=== PATIENT | female | born 1955 | race Caucasian/White ===

== ENCOUNTER → 2018-05-15 11:37 | Outpatient (REF) | payer MEDICARE, OTHER, SELFPAY ==
[2018-05-15 12:48] LABS: Bilirubin Negative (Negative); Blood Negative (Negative); Clarity Sl Cloudy; Glucose Negative (Negative); Ketones Negative (Negative); Leukocyte Esterase Negative (Negative); Nitrite Negative (Negative); Specific Gravity 1.015 (1.005-1.025); Urobilinogen 0.2 EU/dL (Up TO 0.2); pH 7.5 (5-8)
== END ==
LOC: LBN 11:37
PROVIDERS: PCP Family Medicine; Visit Provider Family Medicine
DX: R30.0 Dysuria (principal)
CPT/HCPCS: 81003

== ENCOUNTER 2018-07-18 09:48 | Outpatient (CLI) | payer MEDICARE, OTHER, SELFPAY ==
[2018-07-18 13:04] LABS: ALT 21 U/L (12-78); AST 17 U/L (15-37); Albumin 3.8 g/dL (3.4-5.0); Alkaline Phosphatase 120 U/L (46-116); Anion Gap 9.1 mmol/L (3-11); BUN 21 mg/dL (7-18); Bilirubin, Total 0.4 mg/dL (0.2-1.0); CO2 28.9 mmol/L (21.0-32.0); CREATININE 0.96 mg/dL (0.55-1.02); Calcium 9.3 mg/dL (8.5-10.1); Chloride 102 mmol/L (98-107); Cholesterol 200 mg/dL (50-200); Estimated GFR 58.33 (mL/min/1.73m2); Glucose 96 mg/dL (70-100); HDL Cholesterol 54 mg/dL (40-60); LDL CHOLESTEROL 132 mg/dL (<100); Potassium 4.6 mmol/L (3.5-5.1); Sodium 140 mmol/L (136-145); TSH (W/Ref FT4) 2.01 uIU/mL (0.358-3.74); Total Protein 7.3 g/dL (6.4-8.2); Triglyceride 62 mg/dL (30-150)
== END 2018-07-18 10:08 ==
PROVIDERS: PCP Family Medicine; Visit Provider Family Medicine
DX: I10 Essential (primary) hypertension (principal); F41.9 Anxiety disorder, unspecified; L40.50 Arthropathic psoriasis, unspecified
CPT/HCPCS: 36415; 80053; 80061; 83721; 84443

== ENCOUNTER 2019-07-22 10:29 | Outpatient (CLI) | payer MEDICARE, OTHER, SELFPAY ==
[2019-07-22 13:24] LABS: ALT 15 U/L (14-59); AST 17 U/L (15-37); Albumin 3.9 g/dL (3.4-5.0); Alkaline Phosphatase 100 U/L (46-116); Anion Gap 6.4 mmol/L (3-11); BUN 19 mg/dL (7-18); Bilirubin, Total 0.4 mg/dL (0.2-1.0); CO2 30.6 mmol/L (21.0-32.0); CREATININE 0.92 mg/dL (0.55-1.02); Calcium 9.5 mg/dL (8.5-10.1); Calculated LDL 144 mg/dL; Chloride 97 mmol/L (98-107); Cholesterol 207 mg/dL (50-200); Glucose 92 mg/dL (70-100); HDL Cholesterol 53 mg/dL (40-60); Potassium 3.9 mmol/L (3.5-5.1); Sodium 134 mmol/L (136-145); Total Protein 7.4 g/dL (6.4-8.2); Triglyceride 53 mg/dL (30-150)
== END 2019-07-22 10:49 ==
PROVIDERS: PCP Family Medicine; Visit Provider Family Medicine
DX: I10 Essential (primary) hypertension (principal)
CPT/HCPCS: 36415; 80053; 80061

== ENCOUNTER 2019-08-19 01:22 | Outpatient (CLI) | payer MEDICARE, OTHER, SELFPAY ==
--- NOTE | 2019-08-19 12:20 | DI.MAMMO_ITS ---
EXAM: MG MAMMO SCREENING CLINICAL HISTORY: SCREENING, Z12.31 TECHNIQUE: Mammograms were interpreted according to the usual protocol including computer analysis w [employer] CAD system, tomosynthesis and C-view imaging. COMPARISON: [id number] FINDINGS: The breasts are composed of scattered areas of fibroglandular density, breast density category B. Th ere are no significant masses or signficant microcalcifications. There has been no significant interv al change when compared with prior images. IMPRESSION: Category 1, negative mammogram. Yearly screening mammography is recommended. BI-RADS Cat 1 - Negative Breast Density - Category B - Scattered areas of fibroglandular density
== END 2019-08-19 01:42 ==
PROVIDERS: PCP Family Medicine; Visit Provider Obstetrics & Gynecology
DX: Z12.31 Encounter for screening mammogram for malignant neoplasm of breast (principal)
CPT/HCPCS: 77063; 77067

== ENCOUNTER 2020-02-04 11:08 | Outpatient (REF) | payer MEDICARE, SELFPAY ==
[2020-02-04 13:36] LABS: Bilirubin Negative (Negative); Blood Negative (Negative); Clarity Cloudy (Clear); Glucose Negative (Negative); Ketones Negative (Negative); Leukocyte Esterase Trace (Negative); Nitrite Negative (Negative); Urobilinogen 0.2 EU/dL (Up TO 0.2)
[2020-02-04 14:38] LABS: Epithelial Cells Negative HPF (Negative); RBC Negative HPF (0-2); WBC 0-2 HPF (0-5)
[2020-02-04 14:39] LABS: Bacteria Few HPF (Negative); C & S Indicated? Yes; Casts Negative LPF (Negative); Crystals Negative HPF (Negative); Mucus Negative (Negative)
== END 2020-02-04 11:28 ==
LOC: LBN 11:08
PROVIDERS: PCP Family Medicine; Visit Provider Family Medicine
DX: N39.0 Urinary tract infection, site not specified (principal); R35.0 Frequency of micturition
CPT/HCPCS: 87077; 81003; 81015; 87086; 87186

== ENCOUNTER 2020-10-13 02:26 | Outpatient (CLI) | payer MEDICARE, SELFPAY ==
[2020-10-13 12:48] LABS: ALT 17 U/L (14-59); AST 16 U/L (15-37); Albumin 3.8 g/dL (3.4-5.0); Alkaline Phosphatase 74 U/L (46-116); Anion Gap 6.2 mmol/L (3-11); BUN 19 mg/dL (7-18); Bilirubin, Total 0.4 mg/dL (0.2-1.0); CO2 28.8 mmol/L (21.0-32.0); Calcium 9.2 mg/dL (8.5-10.1); Chloride 101 mmol/L (98-107); Glucose 110 mg/dL (74-106); Potassium 3.9 mmol/L (3.5-5.1); Sodium 136 mmol/L (136-145); Total Protein 6.9 g/dL (6.4-8.2)
== END 2020-10-13 02:46 ==
PROVIDERS: PCP Family Medicine; Visit Provider Family Medicine
DX: I10 Essential (primary) hypertension (principal)
CPT/HCPCS: 36415; 80053

== ENCOUNTER 2020-12-08 01:43 | Inpatient (IN) | payer MEDICARE, SELFPAY ==
[2020-12-08] VITALS (140 sets, daily range): BP systolic 77–119; BP diastolic 41–65; PULSE 44–83; RESP 9–31; TEMP 36.1–37; O2SAT 92–100
--- NOTE | 2020-12-08 01:30 | RT.EKG_ITS ---
APPROVED REPORT Exam: Resting ECG Patient Location: E HR:65 bpm ECG Measurements Heart Rate 65 AXIS FL 153 P 33 QRSd 79 QRS -13 QT 401 T -17 QTc 416 Conclusion Sinus rhythm...normal P axis, V-rate 60- 99 Probable left atrial enlargement...P >50mS, <-0.10mV V1 Left ventricular hypertrophy...multiple voltage criteria Nonspecific T abnormalities, inferior leads...T <-0.10mV, II III aVF
[2020-12-08] MEDS: Normal Saline 1,000 ML 1000 ML IV (01:45)
--- NOTE | 2020-12-08 01:45 | DI.CT_ITS ---
EXAM: CT HEAD WO CLINICAL HISTORY: altered mental status. TECHNIQUE: Imaging Protocol: Axial computed tomography images with coronal and sagittal reformatted images were created and reviewed COMPARISON: No exams were available for comparison FINDINGS: There are no skull fractures nor fluid in the visualized paranasal sinuses. There is no evidence of intracranial hemorrhage, mass effect, or shift of midline structures. There are no extra-axial fluid collections. The ventricles are not enlarged or shifted and there is no blo od within the ventricular system nor within the basal cisterns. IMPRESSION: No acute intracranial findings on this noninfused CT scan of the brain. RADIATION DOSE DELIVERED: 786.23mGy.cm Total DLP DATA REPOSITORY: All CT scans at this facility are submitted to the National Radiology Data Registry (NRDR) Dose Index Registry (DIR) with the [employer] (ACR). RADIATION OPTIMIZATION: All CT scans at this facility use at least one of these dose optimization te chniques: automated exposure control; mA and/or kV adjustment per patient size (includes targeted exa ms where dose is matched to clinical indication); or iterative reconstruction.
--- NOTE | 2020-12-08 01:50 | W.ED.GENAD ---
Discharge Plan Disposition Patient Disposition: [facility] INPATIENT Condition: Serious Discharge Details Chief Complaint: OD/Poison Clinical Impression: Lorazepam overdose Primary Care Provider: Shantal Cruz ED Provider: Pedro Grigsby Home Meds and New Rx's Prescriptions: No Action naproxen sodium [Aleve] 220 mg tablet 440 mg PO BID PRNRF: 0 melatonin 10 mg capsule 10 mg PO HS PRNRF: 0 cyclobenzaprine 5 mg tablet 5 mg PO BID PRN (Reason: muscle spasm) Qty: 30 RF: 0 lorazepam 0.5 mg tablet 0.5 mg PO HS MDD 1 PRN (Reason: sleep) Qty: 90 RF: 0 CALCIUM 600 + D TABLET 1 EACH tablet 1 ea PO BID RF: 0 cholecalciferol (vitamin D3) 1,000 UNIT capsule 2,800 unit PO DAILY RF: 0 acetaminophen [Tylenol Extra Strength] 500 MG tablet 1,000 mg PO BID PRNQty: 100 RF: 0 compression stocking 1 unit Topical DAILY Qty: 1 RF: 1 estradiol [Yuvafem] 10 mcg tablet 10 mcg VG .twice weekly Qty: 24 RF: 4 propranolol 60 mg capsule,extended release 24 hr 60 mg PO DAILY Qty: 90 RF: 12 hydrochlorothiazide 12.5 mg tablet 12.5 mg PO BID RF: 0 Medical Decision Making 65 yo female with hx of insomnia for which she is prescribed lorazepam 0.5mg tablets, anxiety, htn, who comes in with ems with altered mental status. Patient unable to provide any history but ems states her called 911 after she admitted to taking 60 of her ativan tablets. I called the who relays he was asleep and woke to his screaming downstairs at their house. HE ran to her and she was in a panic and kept saying I'm sorry. He was able to get her to calm and she admitted to taking the ativan and was regretful of it, apparently she has been under a lot of stress dealing with management of her mother's property and trying to sell it. The patient arrives sleeping but will moan when I call her name and when painful stimuli is applied she does say ouch and reach for the hand that is applying the stimuli. Withdraws all extremities to painful stimuli and when I ask her to move her hands and feet she is able to move them all slightly. No signs of trauma. Suspect mental status is due to the lorazepam overdose, will evaluate for coingestants and asked go home and check her other prescriptions to see if they were possible ingested. Will also evaluate for possible tbi though unlikely given lack of traumatic findings. Pt as of now protecting her airway and do not feel intubation indicated, will continue to reassess. spoke with and no other pills based on count seem to be ingested. PT remains with stable exam, labs and imaging pending labs without significant abnormalities with tylenol level still pending and urine drug screen as well pending. CT on my read unremarkable, awaiting vrad. Spoke with poison control who had no further recommendations other than observing until mental status improves and could provide no specific data on how long this would be, also recommended [address] unremarkable, mental status unchanged, spoke with Dr. Shea who accepts for admission to the icu for continued monitoring Differential Diagnosis Differential Diagnosis: drug overdose, depression Imaging Data Radiologic Study: Attestation: I personally reviewed and interpreted this imaging study as follows: Imaging: CT Scan Radiologist's impression: no acute findings Lab Data Lab results reviewed: Yes I reviewed the patient's lab results. ECG Data Attestation: I personally reviewed and interpreted this ECG (s) as follows: Prior ECG tracings: not available for review Interpretation: sinus rhythm, rate of 65, pr 153, qtc 416 HPI General Mode of arrival: EMS. Date/Time Provider Initiated Documentation: 12/08/20 01:50. Limitations to Documentation: altered mental status. Information obtained by: family and EMS. History of Present Illness 65 year old F presents to the emergency department with the chief complaint of overdose of lorazepam, described as moderate, and it has been constant. No relieving factors improve symptom(s), No exacerbating factors reported . Patient did receive the following treatments prior to arrival, none Related Data Home Medications Medication Instructions Recorded Confirmed Calcium 600 + D Tablet 1 ea PO BID 03/17/13 12/08/20 cholecalciferol (vitamin D3) 2,800 unit PO DAILY 09/16/13 12/08/20 acetaminophen [Tylenol Extra 1,000 mg PO BID PRN #100 tab-cap 04/30/14 12/08/20 Strength] estradiol 10 mcg vaginal tablet 10 mcg VG .twice weekly #24 tab 07/18/18 12/08/20 melatonin 10 mg capsule 10 mg PO HS PRN 07/22/19 12/08/20 naproxen sodium 220 mg tablet 440 mg PO BID PRN tab 07/22/19 12/08/20 propranolol 60 mg capsule,24 60 mg PO DAILY #90 tab 06/28/20 12/08/20 hr,extended release cyclobenzaprine 5 mg tablet 5 mg PO BID PRN #30 tab-cap 07/26/20 12/08/20 lorazepam 0.5 mg tablet 0.5 mg PO HS PRN #90 tab MDD 1 07/26/20 12/08/20 hydrochlorothiazide 12.5 mg PO BID 12/08/20 12/08/20 Previous Rx's Medication Instructions Recorded estradiol 10 mcg vaginal tablet 10 mcg VG .twice weekly #24 tab 07/18/18 propranolol 60 mg capsule,24 60 mg PO DAILY #90 tab 06/28/20 hr,extended release cyclobenzaprine 5 mg tablet 5 mg PO BID PRN #30 tab-cap 07/26/20 lorazepam 0.5 mg tablet 0.5 mg PO HS PRN #90 tab MDD 1 07/26/20 Allergies Allergy/AdvReac Type Severity Reaction Status Date / Time Barbiturates Allergy Unknown Unverified 07/26/20 08:26 phenylbutazone Allergy Unknown Unverified 07/26/20 08:26 codeine AdvReac Intermediate N/V Unverified 07/26/20 08:26 lisinopril AdvReac Mild cough Unverified 07/26/20 08:26 caffeine AdvReac Unknown N/V Unverified 07/26/20 08:26 ergotamine AdvReac Unknown N/V Unverified 07/26/20 08:26 erythromycin base AdvReac Unknown Unverified 07/26/20 08:26 morphine AdvReac Unknown Unverified 07/26/20 08:26 Review of Systems Unobtainable due to mental status [facility] Medical History (Updated 12/08/20 @ 02:40 by Pedro Grigsby MD) Amnesia Bizarre behavior; resolved and recurr associated with fatigue Annual physical exam (05/06/15) Anxiety (11/11/15) Essential hypertension (09/15/13) Hair loss (08/31/16) Insomnia, unspecified (11/11/15) Medial meniscus tear (05/04/14) Polymyalgia rheumatica 11/23/15 Sed Rate 55; CRP 31.3 Psoriasis 11/23/15 [facility] [place] Psoriatic arthropathy (02/05/14) Skin tags, multiple acquired Superficial thrombosis of left lower extremity (01/31/16) Vaginal atrophy (11/11/15) Surgical History (Updated 07/26/20 @ 08:37 by Shantal Cruz MD, [place]) Arthroscopy 05/04/14- DR. SOMERS; LEFT KNEE H/O arthroscopic knee surgery 10/15/13 partial medial meniscectomy; excision of synovial impingment; lysis of adhesions in suprapatellar pouch and anteromedial aspect of the knee. History of arthroscopy of knee History of excision of lesion squamous cell CA from neck History of surgical removal of lesion Hysterectomy, Laproscopic (~1998) LEFT THUMB FRACTURE 06/26/17 S/P laparoscopic hysterectomy 10/15/98 Skin Cancer Removal SQUAMOUS CELL CA FROM NECK Status post laparoscopic hysterectomy Family History (Updated 07/27/20 @ 14:06 by Jana Campos) Mother Dementia Depression Hyperlipidemia Father IT BUSINESS SYSTEMS ANALYST lymphoma Sister Stroke Cervical cancer + nodes b/l Brother Diabetes Essential hypertension Hyperlipidemia Maternal Grandfather Diabetes Essential hypertension Paternal Grandfather Diabetes Essential hypertension Stroke Maternal Grandmother Essential hypertension Paternal Grandmother Essential hypertension Hyperlipidemia Abdominal malignancy Son No problems noted. Daughter No problems noted. Social History (Updated 07/27/20 @ 14:03 by Jana Campos) Smoking/Tobacco Use Status: Never Smoking risk assessment performed?: Yes Alcohol Intake: current Alcohol Intake frequency: a few times a month Alcohol type: wine Drug use: Never Substance use type: does not use Caregiver/Support person: No Household members: spouse Housing: house Communication Needs: None current occupation: RN [employer] Pets and animals: No Sexually active: Yes Do you think of yourself as: straight/heterosexual Current gender identity: female What is your relationship status?: How often do you talk on the phone with friends or family?: three or more times per week How often do you get together with friends or relatives?: three or more times per week How often do you attend samaritan or catholic services?: 4 or more times per year Do you belong to any clubs or organized social groups?: yes Panel score (0-1 are the most socially isolated patients): 4 What type of physical activity do you participate in: bicycling and other Details: X-COUNTRY SKIING IN WINTER, BIKING/HIKING SUMMER Duration: 45-60 minutes/day Frequency: 3-4 times per week Evangelina/Pentecostalism: Mormon Agree to transfusion: No Seatbelt use: always Helmet use: Yes Helmet use: always Drive intox or ride w/intox sprinkler truck driver: No Exam Const General: lethargic Orientation: other (eyes closed, will say ouch when painful stimuli applied and open eyes) HENMT Head: normal to inspection Ears: external ears normal General nose exam: external nose normal Mouth: moist mucous membranes Eyes General: appearance normal, both eyes and all related structures Neck Neck: normal visual inspection Resp Effort & Inspection: normal respiratory effort and able to speak in complete sentences Cardio Rate: regular rate Skin General skin exam: no rashes or lesions noted Neuro General: moves all extremities Extrem General: normal to inspection Psych Mental Status: mental status grossly normal
[2020-12-08 02:00] LABS: Abs Immature Grans 0.01 10^3/uL (0.0-0.06); Absolute Basophil Count 0.05 10^3/uL (0.0-0.2); Absolute Eosinophil Count 0.08 10^3/uL (0.0-0.7); Absolute Lymphocyte Count 1.83 10^3/uL (1.2-3.4); Absolute Monocyte Count 0.53 10^3/uL (0.1-0.8); Absolute Neutrophil Count 3.81 10^3/uL (1.2-6.7); Basophils % 0.8; Eosinophils % 1.3; HCT 37.8 % (36.0-46.0); HGB 12.7 g/dL (11.2-15.7); Immature Grans % 0.2; MCH 30.2 pg (27.0-33.0); MCHC 33.6 % (32.0-36.0); MCV 89.8 fL (80-95); MPV 9.3 fL (8.0-11.0); Monocytes % 8.4; Neutrophils % 60.3; Nucleated RBC 0 %; Platelet Count 226 10^3/uL (130-400); RBC 4.21 10^6/uL (3.93-5.22); RDW-SD 43.2 fL; WBC 6.31 10^3/uL (4.4-10.8)
[2020-12-08 02:13] LABS: Bilirubin Negative (Negative); Blood Negative (Negative); Clarity Clear (Clear); Glucose Negative (Negative); Ketones 15 mg/dL (Negative); Leukocyte Esterase Negative (Negative); Nitrite Negative (Negative); Specific Gravity 1.025 (1.005-1.025); Urobilinogen 0.2 EU/dL (Up TO 0.2)
[2020-12-08 02:15] LABS: ALT 17 U/L (14-59); AST 15 U/L (15-37); Albumin 3.6 g/dL (3.4-5.0); Alkaline Phosphatase 73 U/L (46-116); Anion Gap 7.3 mmol/L (3-11); BUN 18 mg/dL (7-18); Bilirubin, Direct 0.06 mg/dL (0.00-0.20); Bilirubin, Total 0.4 mg/dL (0.2-1.0); CO2 27.7 mmol/L (21.0-32.0); CREATININE 0.8 mg/dL (0.55-1.02); Calcium 9.4 mg/dL (8.5-10.1); Chloride 99 mmol/L (98-107); Creatine Kinase 75 U/L (26-192); Glucose 118 mg/dL (74-106); Potassium 3.4 mmol/L (3.5-5.1); Sodium 134 mmol/L (136-145); Total Protein 7.1 g/dL (6.4-8.2)
[2020-12-08 02:17] LABS: Salicylate < 2.8 mg/dL (<2.8)
[2020-12-08 02:18] LABS: ETHANOL BLOOD < 3.0 mg/dL (<3)
[2020-12-08 02:22] LABS: INR 1.1 (0.9-1.1); PTT Activated 21.5 sec (21.0-27.5); Prothrombin Time 11.1 sec (9.3-11.0)
[2020-12-08 02:25] LABS: *AMPHETAMINES SCREEN URINE Negative (Negative); *BARBITURATES SCREEN URINE Negative (Negative); *BENZODIAZEPINES SCREEN URINE Negative (Negative); Cannabinoids THC Negative (Negative); Cocaine Screen,Urine Negative (Negative); METHADONE URINE SCREEN Negative (Negative); OPIATES URINE SCREEN Negative (Negative)
[2020-12-08 02:26] LABS: Tricyclic Antidepressants Negative (Negative)
--- NOTE | 2020-12-08 02:30 | DI.VRAD_ITS ---
PROCEDURE INFORMATION: Exam: CT Head Without Contrast Exam date and time: 12/08/2020 1:58 AM Age: 65 years old Clinical indication: Altered mental status/memory loss; Confusion or disorientation; Patient HX: AMS TECHNIQUE: Imaging protocol: Computed tomography of the head without contrast. Radiation optimization: All CT scans at this facility use at least one of these dose optimization techniques: automated exposure control; mA and/or kV adjustment per patient size (includes targeted exams where dose is matched to clinical indication); or iterative reconstruction. COMPARISON: MRI - BRAIN W/WO CONTRAST 12/31/2013 8:12 PM FINDINGS: Brain: There is no acute intracranial hemorrhage, mass effect or midline shift. No large acute territorial infarct identified. There are patchy regions of hypodensity in the periventricular and subcortical white matter, likely on the basis of chronic microvascular ischemic disease. Cerebral ventricles: No ventriculomegaly. Bones/joints: Unremarkable. No acute fracture. Paranasal sinuses: Visualized sinuses are unremarkable. No fluid levels. Mastoid air cells: Visualized mastoid air cells are well aerated. Soft tissues: Unremarkable. IMPRESSION: No acute intracranial hemorrhage, mass effect or midline shift. Dictated and Authenticated by: Heather Nazario MD. Ordering:FRANK Vasquez MD
[2020-12-08 02:31] LABS: Acetaminophen < 2 ug/mL (10-30)
[2020-12-08 02:48] LABS: Source Nasal/Nares
--- NOTE | 2020-12-08 03:52 | W.PM.HP.N ---
Date of service: 12/08/20 Time of Service: 03:52 Assessment and Plan Assessment and plan (1) Lorazepam overdose: Status: Acute Assessment and plan: We will keep the patient n.p.o. keep her head of bed elevated above 30 degrees and monitor her pulse oximetry, heart rate, blood pressure. Otherwise once she is more awake and alert and can carry on a coherent conversation we will ask for mental health consult to evaluate her frame of mind and determine her suicidal intent and level of depression. Qualifiers: Encounter type: initial encounter Injury intent: intentional self-harm Qualified Code(s): T42.4X2A - Poisoning by benzodiazepines, intentional self-harm, initial encounter History of Present Illness History of Present Illness Chief Complaint: lorazepam overdose Narrative: 65-year-old female with a history of essential hypertension, insomnia, anxiety disorder, PMR, psoriasis who reportedly took an overdose of her lorazepam ingesting as much as 60 tablets of 0.5 mg lorazepam. She was brought in the emergency department by EMS who reported that her called 911 after he awoke hearing his screaming downstairs in their house he had a panic stating to her I am sorry. After her was able to get her calm down she admitted to taking the Ativan and was regretful of it. Upon arrival to emergency department she was somnolent but arousable to noxious stimuli. When ER personnel caught her name she would moan and when noxious stimuli was applied she was saying ouch and reach with her hand towards noxious stimuli. Patient reportedly had no signs of trauma. Dr. Pedro Grigsby, emergency room attending, spoke with poison control who had no further recommendations other than observing her until her mental status improved. They did recommend a 4-hour Tylenol level to be repeated. Dr. Grigsby did diagnostic work-up including screening labs including CBC, coagulation profile, CMP, urinalysis, urine for drugs of abuse, and nasal swab for SARS-CoV-2. CBC was within normal limits. Coagulation profile demonstrated borderline elevated pro time 11.1 with a normal INR 1.1 and normal PTT of 21.5. CMP was remarkable for serum sodium of 135 and potassium 3.4 with a normal anion gap of 7.3 and normal BUN and creatinine and normal LFTs. Urinalysis was remarkable for 15 mg/dL ketones with specific gravity 1.025 and otherwise was negative. Urine for drugs of abuse was negative. Noncontrast CT scan of her head was performed showed no acute intracranial process. Patient is now admitted to ICU for monitoring of her airway awaiting metabolism of the lorazepam and return to a more alert state. In the morning we will ask for mental health consult to assess her potential for suicide. Review of Systems Unobtainable due to mental condition [facility] Medical History Amnesia Bizarre behavior; resolved and recurr associated with fatigue Annual physical exam (05/06/15) Anxiety (11/11/15) Essential hypertension (09/15/13) Hair loss (08/31/16) Insomnia, unspecified (11/11/15) Medial meniscus tear (05/04/14) Polymyalgia rheumatica 11/23/15 Sed Rate 55; CRP 31.3 Psoriasis 11/23/15 [facility] [place] Psoriatic arthropathy (02/05/14) Skin tags, multiple acquired Superficial thrombosis of left lower extremity (01/31/16) Vaginal atrophy (11/11/15) Surgical History Arthroscopy 05/04/14- DR. SOMERS; LEFT KNEE H/O arthroscopic knee surgery 10/15/13 partial medial meniscectomy; excision of synovial impingment; lysis of adhesions in suprapatellar pouch and anteromedial aspect of the knee. History of arthroscopy of knee History of excision of lesion squamous cell CA from neck History of surgical removal of lesion Hysterectomy, Laproscopic (~1998) LEFT THUMB FRACTURE 06/26/17 S/P laparoscopic hysterectomy 10/15/98 Skin Cancer Removal SQUAMOUS CELL CA FROM NECK Status post laparoscopic hysterectomy Family History Mother Dementia Depression Hyperlipidemia Father [employer]PER[employer] lymphoma Sister Stroke Cervical cancer + nodes b/l Brother Diabetes Essential hypertension Hyperlipidemia Maternal Grandfather Diabetes Essential hypertension Paternal Grandfather Diabetes Essential hypertension Stroke Maternal Grandmother Essential hypertension Paternal Grandmother Essential hypertension Hyperlipidemia Abdominal malignancy Son No problems noted. Daughter No problems noted. 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 [employer] Pets and animals: No Sexually active: Yes Do you think of yourself as: straight/heterosexual Current gender identity: female What is your relationship status?: How often do you talk on the phone with friends or family?: three or more times per week How often do you get together with friends or relatives?: three or more times per week How often do you attend restorationism or rastafari services?: 4 or more times per year Do you belong to any clubs or organized social groups?: yes Panel score (0-1 are the most socially isolated patients): 4 What type of physical activity do you participate in: bicycling and other Details: X-COUNTRY SKIING IN WINTER, BIKING/HIKING SUMMER Duration: 45-60 minutes/day Frequency: 3-4 times per week Evangelina/Mormonism: Pentecostalism Agree to transfusion: No Seatbelt use: always Helmet use: Yes Helmet use: always Drive intox or ride w/intox motor coach bus driver: No Meds Home Medications and Allergies Home Medications Medication Instructions Recorded Confirmed Type Calcium 600 + D Tablet 1 ea PO BID 03/17/13 12/08/20 History cholecalciferol (vitamin D3) 2,800 unit PO DAILY 09/16/13 12/08/20 History acetaminophen [Tylenol Extra 1,000 mg PO BID PRN #100 tab-cap 04/30/14 12/08/20 History Strength] Compression Stocking 1 unit TOPICAL DAILY #1 unit 05/30/16 07/18/18 Clinic estradiol 10 mcg vaginal tablet 10 mcg VG .twice weekly #24 tab 07/18/18 12/08/20 Rx melatonin 10 mg capsule 10 mg PO HS PRN 07/22/19 12/08/20 History naproxen sodium 220 mg tablet 440 mg PO BID PRN tab 07/22/19 12/08/20 History propranolol 60 mg capsule,24 60 mg PO DAILY #90 tab 06/28/20 12/08/20 Rx hr,extended release cyclobenzaprine 5 mg tablet 5 mg PO BID PRN #30 tab-cap 07/26/20 12/08/20 Rx lorazepam 0.5 mg tablet 0.5 mg PO HS PRN #90 tab MDD 1 10/12/20 02/24/21 Rx hydrochlorothiazide 12.5 mg PO BID 12/08/20 12/08/20 History Allergies Allergy/AdvReac Type Severity Reaction Status Date / Time Barbiturates Allergy Unknown Unverified 07/26/20 08:26 phenylbutazone Allergy Unknown Unverified 07/26/20 08:26 codeine AdvReac Intermediate N/V Unverified 07/26/20 08:26 lisinopril AdvReac Mild cough Unverified 07/26/20 08:26 caffeine AdvReac Unknown N/V Unverified 07/26/20 08:26 ergotamine AdvReac Unknown N/V Unverified 07/26/20 08:26 erythromycin base AdvReac Unknown Unverified 07/26/20 08:26 morphine AdvReac Unknown Unverified 07/26/20 08:26 Exam Narrative Exam Narrative: Middle-age female lying in ICU bed with her head elevated with sonorous respirations. She does not respond when I call her name but with sternal rub she moans and grimaces. HEENT is remarkable for markedly diminished gag reflex. Atraumatic head. No hemotympanum and no epistaxis Neck supple with no JVD normal carotid pulses Lungs are clear to auscultation Heart is bradycardic without murmur rub or gallop Abdomen soft nondistended with hypoactive bowel sounds no palpable masses no organomegaly Extremities without peripheral cyanosis or edema or bruising Neuro exam is nonfocal withdraws to noxious stimuli and grimaces but is nonverbal. GCS = 8 (E2, V2, M4) Results Labs Result diagrams: 12/08/20 01:51 12/08/20 01:51 Labs: Laboratory Results - last 24 hr 12/08/20 12/08/20 12/08/20 01:51 01:51 01:51 WBC 6.31 RBC 4.21 Hgb 12.7 Hct 37.8 MCV 89.8 MCH 30.2 MCHC 33.6 RDW 13.0 Plt Count 226 MPV 9.3 Immature Gran % 0.2 Neutrophils % 60.3 Lymphocytes % 29.0 Monocytes % 8.4 Eosinophils % 1.3 Basophils % 0.8 Nucleated RBC % 0 Absolute Neutrophils 3.81 Absolute Lymphocytes 1.83 Absolute Monocytes 0.53 Absolute Eosinophils 0.08 Absolute Basophils 0.05 PT INR APTT Sodium 134 L Potassium 3.4 L Chloride 99 Carbon Dioxide 27.7 Anion Gap 7.3 BUN 18 Creatinine 0.8 Estimated GFR/1.73 m2 >= 60.00 Glucose 118 H Calcium 9.4 Total Bilirubin 0.4 Conjugated Bilirubin 0.06 AST 15 ALT 17 Alkaline Phosphatase 73 Creatine Kinase 75 Total Protein 7.1 Albumin 3.6 Urine Color Urine Clarity Urine pH Ur Specific [place] Urine Protein Urine Ketones Urine Blood Urine Nitrite Urine Bilirubin Urine Urobilinogen Ur Leukocyte Esterase Urine Glucose Salicylates < 2.8 Urine Opiates Screen Urine Methadone Screen Acetaminophen < 2 Ur Barbiturates Screen Ur Tricyclics Screen Ur Amphetamines Screen U Benzodiazepines Scrn Urine Cocaine Screen Ur THC Screen Ethyl Alcohol < 3.0 COVID-19 Source 12/08/20 12/08/20 12/08/20 01:51 02:04 02:04 WBC RBC Hgb Hct MCV MCH MCHC RDW Plt Count MPV Immature Gran % Neutrophils % Lymphocytes % Monocytes % Eosinophils % Basophils % Nucleated RBC % Absolute Neutrophils Absolute Lymphocytes Absolute Monocytes Absolute Eosinophils Absolute Basophils PT 11.1 H INR 1.1 APTT 21.5 Sodium Potassium Chloride Carbon Dioxide Anion Gap BUN Creatinine Estimated GFR/1.73 m2 Glucose Calcium Total Bilirubin Conjugated Bilirubin AST ALT Alkaline Phosphatase Creatine Kinase Total Protein Albumin Urine Color Yellow Urine Clarity Clear Urine pH 7.0 Ur Specific [place] 1.025 Urine Protein Negative Urine Ketones 15 H Urine Blood Negative Urine Nitrite Negative Urine Bilirubin Negative Urine Urobilinogen 0.2 Ur Leukocyte Esterase Negative Urine Glucose Negative Salicylates Urine Opiates Screen Negative Urine Methadone Screen Negative Acetaminophen Ur Barbiturates Screen Negative Ur Tricyclics Screen Negative Ur Amphetamines Screen Negative U Benzodiazepines Scrn Negative Urine Cocaine Screen Negative Ur THC Screen Negative Ethyl Alcohol COVID-19 Source 12/08/20 02:40 WBC RBC Hgb Hct MCV MCH MCHC RDW Plt Count MPV Immature Gran % Neutrophils % Lymphocytes % Monocytes % Eosinophils % Basophils % Nucleated RBC % Absolute Neutrophils Absolute Lymphocytes Absolute Monocytes Absolute Eosinophils Absolute Basophils PT INR APTT Sodium Potassium Chloride Carbon Dioxide Anion Gap BUN Creatinine Estimated GFR/1.73 m2 Glucose Calcium Total Bilirubin Conjugated Bilirubin AST ALT Alkaline Phosphatase Creatine Kinase Total Protein Albumin Urine Color Urine Clarity Urine pH Ur Specific [place] Urine Protein Urine Ketones Urine Blood Urine Nitrite Urine Bilirubin Urine Urobilinogen Ur Leukocyte Esterase Urine Glucose Salicylates Urine Opiates Screen Urine Methadone Screen Acetaminophen Ur Barbiturates Screen Ur Tricyclics Screen Ur Amphetamines Screen U Benzodiazepines Scrn Urine Cocaine Screen Ur THC Screen Ethyl Alcohol COVID-19 Source Nasal/nares Last Vital Signs Temp 36.5 C 12/08/20 01:54 Pulse 51 L 12/08/20 03:10 Resp 17 12/08/20 03:11 BP 79/44 L 12/08/20 03:10 Pulse Ox 97 12/08/20 03:11 COVID-19 Screening Have you, or household traveled for leisure in last 14 days?: No Had IN PERSON contact w/suspected or confirmed C-19 person: No
[2020-12-08 05:47] LABS: Acetaminophen 2 ug/mL (10-30)
[2020-12-08] MEDS: Normal Saline 500 ML IV (07:20)
[2020-12-08 08:26] LABS: ALT 16 U/L (14-59); AST 12 U/L (15-37); Albumin 2.9 g/dL (3.4-5.0); Alkaline Phosphatase 63 U/L (46-116); Anion Gap 4.9 mmol/L (3-11); BUN 16 mg/dL (7-18); Bilirubin, Total 0.4 mg/dL (0.2-1.0); CO2 28.1 mmol/L (21.0-32.0); CREATININE 0.8 mg/dL (0.55-1.02); Calcium 8.4 mg/dL (8.5-10.1); Chloride 104 mmol/L (98-107); Glucose 98 mg/dL (74-106); Magnesium 2.1 mg/dL (1.8-2.4); Potassium 3.5 mmol/L (3.5-5.1); Sodium 137 mmol/L (136-145)
[2020-12-08 09:26] LABS: *AMPHETAMINES SCREEN URINE Negative (Negative); *BARBITURATES SCREEN URINE Negative (Negative); *BENZODIAZEPINES SCREEN URINE Negative (Negative); Cannabinoids THC Negative (Negative); Cocaine Screen,Urine Negative (Negative); METHADONE URINE SCREEN Negative (Negative); OPIATES URINE SCREEN Negative (Negative)
[2020-12-08 09:29] LABS: Tricyclic Antidepressants Negative (Negative)
--- NOTE | 2020-12-08 09:49 | PDOC.CMIN ---
- If Service Date Differs Date of service: 12/08/20 Time of Service: 09:49 Care Management Initial Assess REASON FOR HOSPITALIZATION:: Lorazepam overdose PAST MEDICAL HISTORY/PAST SURGICAL HISTORY:: Medical History . Amnesia. Bizarre behavior; resolved and recurr associated with fatigue. Annual physical exam (05/06/15). Anxiety (11/11/15). Essential hypertension (09/15/13). Hair loss (08/31/16). Insomnia, unspecified (11/11/15). Medial meniscus tear (05/04/14). Polymyalgia rheumatica. 11/23/15 Sed Rate 55; CRP 31.3. Psoriasis. 11/23/15 [facility] [place]. Psoriatic arthropathy (02/05/14). Skin tags, multiple acquired. Superficial thrombosis of left lower extremity (01/31/16). Vaginal atrophy (11/11/15). Surgical History . Arthroscopy. 05/04/14- DR. SOMERS; LEFT KNEE. H/O arthroscopic knee surgery. 10/15/13 partial medial meniscectomy; excision of synovial impingment; lysis of adhesions in suprapatellar pouch and anteromedial aspect of the knee. History of arthroscopy of knee. History of excision of lesion. squamous cell CA from neck. History of surgical removal of lesion. Hysterectomy, Laproscopic (~1998). LEFT THUMB FRACTURE. 06/26/17. S/P laparoscopic hysterectomy. 10/15/98. Skin Cancer Removal. SQUAMOUS CELL CA FROM NECK. Status post laparoscopic hysterectomy PREVIOUS FUNCTIONAL STATUS/SOCIAL/FAMILY SUPPORTS:: Nay lives in [place] with her Slade. They have 2 adult children in their thirties, a son and a daughter but no grandchildren. Both Nay and Slade retired in April of 2019. 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 Both Nay and Slade are active and spen time crosscountry and Alpine skiing, hiking and riding their mountain bikes. CURRENT FUNCTIONAL STATUS:: Nay was lying in bed with her eyes closed when CM came to see her. Per nursing, she is still very sleeepy and unable to participate in a conversation. CM called her and obtained information related to the period prior to Nay's overdose. Her shared that Nay had a breakdown in 2013 afetr a period of insomnia but has been fine until the past week or so. He stated that Nay is no longer able to handle any stress and feels as though every decision she makes is wrong. She is DPOA for her mother and is in the process of selling her house and feels many of her decisions have been faulty and fears that [facility] [place] [facility] [place] [facility], even though she has done nothing wrong. She has not been in therapy nor does does she have a mental health provider or services. ADVANCE DIRECTIVES:: Slade ACEVEDO Has patient been provided with info about the portal/API?: Yes Did the patient sign up for the portal?: No CODE STATUS:: Full Code INSURANCE COVERAGE / FINANCIAL ISSUES:: Medicare. [place] CURRENT HOME/COMMUNITY SERVICES/EQUIPMENT:: None currently PRIMARY CARE PHYSICIAN:: Shantal Cruz PATIENT/FAMILY EDUCATION NEEDS:: Follow up with PCP, discharge plan of care and mental health ANTICIPATED BARRIERS TO DISCHARGE:: Discharge plan, limitations, Ask Me Three, follow up plan, mental health resources TRANSPORTATION:: to be determined by disposition PLAN:: Nay will likely benefit from mental health services, either inpatient if deemed to be suicidal or out patient. She will follow up with her community poviders and plan of care. Nay will transport with family vs ambulance depending on disposition. CM will continue to support Nay and her discharge planning concerns.
--- NOTE | 2020-12-08 11:39 | PHA.REVIEW ---
Pharmacy Admission Review - Admission Clinical Review (Last Reviewed 12/08/20 @ 04:01 by Hilario Renteria) Lorazepam overdose (Acute) Barbiturates Allergy (Unknown, Unverified 07/26/20 08:) phenylbutazone Allergy (Unknown, Unverified 07/26/20:) codeine Adverse Reaction (Intermediate, Unverified 07/26/20:) N/V lisinopril Adverse Reaction (Mild, Unverified 07/26/20:) cough caffeine Adverse Reaction (Unknown, Unverified 07/26/20:) N/V ergotamine Adverse Reaction (Unknown, Unverified 07/26/20:) N/V erythromycin base Adverse Reaction (Unknown, Unverified 07/26/20:) morphine Adverse Reaction (Unknown, Unverified 07/26/20:) Weight 56 kg Intentional Lorazepam overdose - Comments Comments/Follow Ups: Patient admittedly consumed aprox #60 Lorazepam 0.5mg tablets. Tox screen x 2 has not detected Benzos in her urine. Our lab assay may require a send out, as certain Benzos, depending on the metabolite may not be detected in our Tox screen. No intervention according to poison control, allow to metabolize. One/One observer, patient weak, mostly unresponsive although responds to shaking with nodding, grimacing. Once awake mental health will consult - Renal Dosing Renal Dosing: BUN 16 mg/dL (7-18) 12/08/20 08:10 Creatinine 0.8 mg/dL (0.55-1.02) 12/08/20 08:10 Medications needing adjustments: Intervened (height not entered, found 5 feet on Clinic visit Jul 2020...CrCl~49ml/min) - Anticoagulation Anticoagulation: Hgb 12.7 g/dL (11.2-15.7) 12/08/20 01:51 Hct 37.8 % (36.0-46.0) 12/08/20 01:51 Plt Count 226 10^3/uL (130-400) 12/08/20 01:51 INR 1.1 (0.9-1.1) 12/08/20 01:51 Creatinine 0.8 mg/dL (0.55-1.02) 12/08/20 08:10 DVT Prohphylaxis: N/A (Not at this time) - Opiate Usage Evaluate Pain Scale/Pains Meds: N/A - Relevant Labs Sodium 137 mmol/L (136-145) 12/08/20 08:10 Potassium 3.5 mmol/L (3.5-5.1) 12/08/20 08:10 Chloride 104 mmol/L (98-107) 12/08/20 08:10 Magnesium 2.1 mg/dL (1.8-2.4) 12/08/20 08:10 Electrolytes, C-Reactive P, ESR: Reviewed (KCL 20meq in IVF's @ 150ml/hr, Toxicology panel negative for other meds) - DM Control DM Control: Glucose 98 mg/dL (74-106) 12/08/20 08:10 Insulin Dosing: N/A - BP Control BP Control: Blood Pressure [Left Arm] 83/44 Blood Pressure 96/49 Blood Pressure 94/49 Blood Pressure 91/52 Blood Pressure 89/48 Blood Pressure 105/52 Blood Pressure 89/49 Blood Pressure 97/61 Blood Pressure 89/54 Blood Pressure 91/48 Blood Pressure 85/46 Blood Pressure 82/47 Blood Pressure 86/44 Blood Pressure 80/46 Blood Pressure 79/44 Blood Pressure 78/45 Blood Pressure 77/44 Blood Pressure 84/44 Blood Pressure 81/42 Blood Pressure 82/44 Blood Pressure 82/42 Blood Pressure 78/45 Blood Pressure 87/47 Blood Pressure 83/44 Blood Pressure 77/45 Blood Pressure 79/44 Blood Pressure 83/45 Blood Pressure 83/49 Blood Pressure 82/46 Blood Pressure 80/41 Blood Pressure 84/47 Blood Pressure 86/47 Blood Pressure 81/47 Blood Pressure 83/50 If elevated: N/A ( notes soft BP's and low HR are her baseline, although PCP clinic note on Oct states patient has Hypertension and takes Propranolol and HCTZ) - Qtc Review If Elevated: Reviewed (QTC 416) - Home Meds Home Med List reviewed: Reviewed Relevent Home Meds Not ordered & why?: HCTZ, Propranolol ER, Cyclobenzaprine....patient NPO at this time, BP's are soft, HR Bradycardic
[2020-12-08 11:49] LABS: COVID-19 PCR Negative (Negative)
--- NOTE | 2020-12-08 16:58 | PDOC.CMSAFE ---
- If Service Date Differs Date of service: 12/08/20 Time of Service: 17:32 Care Management Safety Plan Status: Voluntary CM will respond to assess patient after patient has been medically cleared and assessed by screener. If screener deems patient meets criteria for psychiatric stabilization CM will facilitate interdepartmental huddle with [facility] screener for safety planning considerations and meet with patient to review [facility] policy and safety plan, establish individual wishes for treatment and maintain patient rights. In the interim; please note safety plan below to guide patient care while awaiting further assessment in the ED. SAFETY PLAN: 1. Will remain on suicide precautions and in paper clothes. 2. Will remain in room under direct supervision of one-on-one staff at all times provided by KENZIE, SKOOG OPERATOR restoration officer. 3. May have paper cups, plates, finger foods as well as a cardboard spoon with which to eat meals. 4. Follow [facility] Management of the Admitted Behavioral Health Patient policy. 5. Comfort bath system only. 6. No personal belongings 7. No visitors. 8. Phone contact limited to Slade, son Pedro and daughter Angi. 9. Due to VOLUNTARY status, if patient wishes to leave [facility], staff will contact [facility] Crisis Screener ([phone]) and On-Call Counseling Director ([phone]) as soon as possible. In the event of elopement, notify [facility] Police ([phone]). If deemed appropriate for inpatient psychiatric care, safety plan will be established with patient, and care team, to adhere to patient goals, identify restrictions based on behavioral status, address nutrition, and determine allowed personal belongings, tools for hygiene and personal care. As well plan will determine level of activity including ambulation, level of supervision, visitors, and determine privileges based on level of acuity, behaviors and level of engagement by patient.
--- NOTE | 2020-12-08 17:00 | CMPROGNOTE_ITS ---
- If Service Date Differs Date of service: 12/08/20 Time of Service: 17:01 Care Management Progress Note Nay is a 65 year old woman who presented to the ED on 12/08/20 after having ingested 60 Lorazepam 0.5mg tablets in an attempt to commit suicide. Nay has been depressed and anxious for the past few years but has never been hospitalized in a psychiatric facility nor has she received any mental health care or counseling in the community. In 2011 and 2013 she had a breakdown per but both times was discharged home after spending one night at [facility]. CM will respond to assess patient after patient has been medically cleared and assessed by screener. If screener deems patient meets criteria for psychiatric stabilization CM will facilitate interdepartmental huddle with [facility] screener for safety planning considerations and meet with patient to review [facility] policy and safety plan, establish individual wishes for treatment and maintain patient rights. In the interim; please note safety plan below to guide patient care while awaiting further assessment in the ED. SAFETY PLAN: 1. Will remain on suicide precautions and in paper clothes. 2. Will remain in room under direct supervision of one-on-one staff at all times provided by KENZIE, MILITARY EQUIPMENT SPECIALIST senior environmental scientist. 3. May have paper cups, plates, finger foods as well as a cardboard spoon with which to eat meals. 4. Follow [facility] Management of the Admitted Behavioral Health Patient policy. 5. Comfort bath system only. 6. No personal belongings 7. No visitors. 8. Phone contact limited to Slade, daughter Angi and son Pedro. 9. Due to VOLUNTARY status, if patient wishes to leave [facility], staff will contact [facility] Crisis Screener ([phone]) and On-Call Professional Sports Scout ([phone]) as soon as possible. In the event of elopement, notify [facility] Police ([phone]). If deemed appropriate for inpatient psychiatric care, safety plan will be established with patient, and care team, to adhere to patient goals, identify restrictions based on behavioral status, address nutrition, and determine allowed personal belongings, tools for hygiene and personal care. As well plan will determine level of activity including ambulation, level of supervision, visitors, and determine privileges based on level of acuity, behaviors and level of engagement by patient.
--- NOTE | 2020-12-08 21:31 | NUR.NOTE ---
pt remains lethargic but responds readily and answers questions appropriately. Speech is slow and deliberate. hand eye coordination slow. c/o double vision. n/c of discomfort or pain. no SOB. Retentive of sips of ice water which Dr Kay told pt she could have. Applying chapstick to lips, hand movements very slow and deliberate. VS much more stable this evening.
[2020-12-09] VITALS (48 sets, daily range): BP systolic 93–151; BP diastolic 48–89; PULSE 50–110; RESP 11–29; TEMP 36.5–36.8; O2SAT 96–98
--- NOTE | 2020-12-09 07:40 | W.PALLCONSUL ---
Date of service: 12/09/20 Time of Service: 07:41 History of Present Illness Narrative: Nay is a 65-year-old woman who is well-known to me. I have been her PCP for approximately 20 years. Yesterday Nay was admitted to the hospital, obtunded, and found to have taken a lorazepam overdose. Most of yesterday she was very somnolent. I am seeing her today to discuss her depression and future goals. Nay has a past medical history of psychotic breaks x2. She did see a psychiatrist who felt that they were stress related and isolated incidences. Nay's mother is in a prison. Nay is trying to sell her house to be able to afford this. Unfortunately selling the house has been tangled up with problems. Nay is not able to overcome these. She is concerned that her mother will end up needing to go to a custodial if this house sale cannot be accomplished. This is all Nay is able to talk about. She just felt like it was a tangled mask and she could not figure out any way out of it. Consults Consult date: 12/09/20 Requesting physician: Benny Kay Assessment and Plan Assessment and plan (1) Lorazepam overdose: Status: Acute Qualifiers: Encounter type: initial encounter Injury intent: intentional self-harm Qualified Code(s): T42.4X2A - Poisoning by benzodiazepines, intentional self-harm, initial encounter (2) Palliative care patient: Status: Acute Assessment and plan: Nay is a 65-year-old woman with severe depression and feelings of being overwhelmed. She is status post lorazepam overdose. The laboratory markers of benzodiazepine, lorazepam is presently being sent out as our panel does not detect lorazepam. She is significantly more awake today compared to what I was told she was like yesterday. She will need to be seen by mental health and most likely will need an inpatient psych admission. She continued to perseverate about the sale of her mother's house and could not move beyond this to see her depression and anxiety. Thank you very much for this consult Review of Systems Narrative: Nay states that she is tired, she feels logy, she does not have any chest pain, no shortness of breath, no stomach pain, no specific muscular skeletal pain, no dysuria. She feels desperate and cannot figure out how to maneuver the sale of her mother's house. She states she is overwhelmed [facility] Medical History Amnesia Bizarre behavior; resolved and recurr associated with fatigue Annual physical exam (05/06/15) Anxiety (11/11/15) Essential hypertension (09/15/13) Hair loss (08/31/16) Insomnia, unspecified (11/11/15) Medial meniscus tear (05/04/14) Polymyalgia rheumatica 11/23/15 Sed Rate 55; CRP 31.3 Psoriasis 11/23/15 [facility] Psoriatic arthropathy (02/05/14) Skin tags, multiple acquired Superficial thrombosis of left lower extremity (01/31/16) Vaginal atrophy (11/11/15) Surgical History Arthroscopy 05/04/14- DR. SOMERS; LEFT KNEE H/O arthroscopic knee surgery 10/15/13 partial medial meniscectomy; excision of synovial impingment; lysis of adhesions in suprapatellar pouch and anteromedial aspect of the knee. History of arthroscopy of knee History of excision of lesion squamous cell CA from neck History of surgical removal of lesion Hysterectomy, Laproscopic (~1998) LEFT THUMB FRACTURE 06/26/17 S/P laparoscopic hysterectomy 10/15/98 Skin Cancer Removal SQUAMOUS CELL CA FROM NECK Status post laparoscopic hysterectomy Family History Mother Dementia Depression Hyperlipidemia Father ASSET MANAGEMENT LEAD lymphoma Sister Stroke Cervical cancer + nodes b/l Brother Diabetes Essential hypertension Hyperlipidemia Maternal Grandfather Diabetes Essential hypertension Paternal Grandfather Diabetes Essential hypertension Stroke Maternal Grandmother Essential hypertension Paternal Grandmother Essential hypertension Hyperlipidemia Abdominal malignancy Son No problems noted. Daughter No problems noted. 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 Pets and animals: No Sexually active: Yes Do you think of yourself as: straight/heterosexual Current gender identity: female What is your relationship status?: How often do you talk on the phone with friends or family?: three or more times per week How often do you get together with friends or relatives?: three or more times per week How often do you attend methodist or restorationist services?: 4 or more times per year Do you belong to any clubs or organized social groups?: yes Panel score (0-1 are the most socially isolated patients): 4 What type of physical activity do you participate in: bicycling and other Details: X-COUNTRY SKIING IN WINTER, BIKING/HIKING SUMMER Duration: 45-60 minutes/day Frequency: 3-4 times per week Evangelina/Pentecostalism: Mandaen Agree to transfusion: No Seatbelt use: always Helmet use: Yes Helmet use: always Drive intox or ride w/intox route sales delivery driver: No Exam Narrative Exam Narrative: Nay is a 65-year-old woman who is lying in bed. She desperately clings to my hand and tells me her angst about the sale of her mother's house. She is talking in complete sentences. The more she talks the more revved up she is becomes. There many tears Results Last Vital Signs Temp 97.7 F 12/09/20 04:03 Pulse 54 L 12/09/20 04:03 Resp 24 12/09/20 04:03 BP 103/56 L 12/09/20 04:03 Pulse Ox 96 12/09/20 04:03 Labs Result diagrams: 12/08/20 01:51 12/08/20 08:10 Labs: Laboratory Results - last 24 hr 12/08/20 12/08/20 12/08/20 02:40 08:10 08:40 Sodium 137 Potassium 3.5 Chloride 104 Carbon Dioxide 28.1 Anion Gap 4.9 BUN 16 Creatinine 0.8 Estimated GFR/1.73 m2 >= 60.00 Glucose 98 Calcium 8.4 L Magnesium 2.1 Total Bilirubin 0.4 AST 12 L ALT 16 Alkaline Phosphatase 63 Total Protein 6.0 L Albumin 2.9 L Urine Opiates Screen Negative Urine Methadone Screen Negative Ur Barbiturates Screen Negative Ur Tricyclics Screen Negative Ur Amphetamines Screen Negative U Benzodiazepines Scrn Negative Urine Cocaine Screen Negative Ur THC Screen Negative SARS-CoV-2 (PCR) Negative
--- NOTE | 2020-12-09 09:27 | PDOC.CMPRO ---
- If Service Date Differs Date of service: 12/09/20 Time of Service: 09:27 Care Management Progress Note S/O:Nay was sitting up in bed when CM met with her. She was teary and anxious. OLLIE brought in a tablet to do a Zoom meeting with Kaitlin from [facility] but Nay was unable to participate fully. Kaitlin made the decision to come in person and Nay was then able to fully engage. She answered questions and admitted that she still has suicidal thoughts and could not say that she would not try again. She responded when asked I hope not. Nay shared details about the sale of her mother's house and all of the stress she has been under since assuming the role of POA for her mother. Per Nay and her , she was feeling completely overwhelmed and unable to focus and function. Nay has agreed to seek voluntary placement in a psychiatric facility and a referral was sent to [facility]. OLLIE also spoke with Nay's Slade several times. Slade shared that he has asked Nay's brother to assume the role of POA effective immediately and her brother agreed. Nay was also concerned that after paying for her mother's private caregiver for December, that there would not be any money to pay for her care going forward. She asked CM what would happen to her mother. In conversation with Slade, OLLIE learned that there is enough money, even without the sale of the house, to pay for care through June. All of this information was shared with Nay and reinforced by Kaitlin when meeting with Nay. Nay appeared to accept that going forward there could be less responsibility and stress for her. A: Nay is a 65 year old woman admitted on 12/08/20 following an intentional overdose of Lorazepam P:Nay will likely benefit from inpatient psychiatric care and a referral was sent to [facility] for voluntary placement, at Nay's request. When discharged form inpatient psychiatric facility Nay will follow up with her community providers and plan of care. Nya will transport with family vs ambulance depending on disposition. CM will continue to support Nay and her family and her discharge planning concerns.
[2020-12-09] MEDS: Naproxen 500 MG TAB PO ×2 (10:26→19:30)
--- NOTE | 2020-12-09 11:14 | PGE_ITS ---
Date of Service Date of service: 12/09/20 Time of Service: 08:49 Assessment and Plan Assessment and plan (1) Lorazepam overdose: Status: Acute Assessment and plan: Now awake; stable. Medically cleared for mental health to evaluate and make plan for treatment. Qualifiers: Encounter type: initial encounter Injury intent: intentional self-harm Qualified Code(s): T42.4X2A - Poisoning by benzodiazepines, intentional self- harm, initial encounter (2) Psoriatic arthropathy: Status: Chronic Assessment and plan: Naprosyn 500mg po BID (3) Essential hypertension: Status: Chronic Assessment and plan: Controlled. On HCTZ at home but not restarted since admission. Monitor (4) Anxiety: Status: Chronic Assessment and plan: Palliative care consult appreciated. Patient of Dr Cruz. Perseverating over the responsibility of selling her mother's home. s/p Lorazepam overdose. Mental Health evaluation. Subjective Subjective Patient reports: tolerating a regular diet and afebrile; denies diarrhea, nausea , vomiting and shortness of breath Interval history since last seen: Pt describes ongoing R shoulder pain that she takes Aleve 440mg BID to treat. Feels tired. Exam Const General: cooperative, no acute distress and anxious Nutritional Appearance: average body habitus Orientation: oriented to person and oriented to place Eyes Sclera: sclerae normal Pupils: PERRL Resp Effort & Inspection: normal respiratory effort Auscultation: clear to auscultation bilaterally Cardio Rate: regular rate Rhythm: regular rhythm Heart Sounds: S1 normal and S2 normal GI Palpation: soft and nontender Auscultation: normal bowel sounds Neuro General: moves all extremities and no focal motor deficits Cognition: normal cognition Speech: speech normal Extrem General: no pedal edema and no calf tenderness Psych Appearance: grossly normal Speech and Movement: speech and movement normal Mood: anxious mood Affect: sad Objective Last Vital Signs Temp 36.6 C 12/09/20 09:14 Pulse 87 12/09/20 10:01 Resp 17 12/09/20 10:01 BP 99/58 L 12/09/20 10:01 Pulse Ox 97 12/09/20 06:00 Laboratory Results - last 24 hr 12/08/20 02:40 SARS-CoV-2 (PCR) Negative
--- NOTE | 2020-12-09 15:23 | CHAPLAIN ---
Nay was resting in bed when I visited. She was open to conversation. She told me she was going to [facility]. She said she believes she has failed people, including her mother. Her mother was home until about a year ago, and because of worsening dementia was placed in a usp, where her cousin is also a resident. Nay is concerned that if they don't sell her mom's house that funds for keeping her where she is will run out and so she will have failed again. We talked about believing that we are children of God, and how God's love and berenice is given to us with no expectations. Nay asked if God ever leaves people. I told her I didn't think so, but sometime we may feel distanced from God. We talked about ways we can see God in our world. She mentioned enjoying a cup of tea by herself in the morning and having time with God then. I offered a prayer with Nay. Nay asked if I could locate Rev. Ryan Cox, who was formerly in [place] and now is a ground operations supervisor at a [employer] in [place], [place]. She said that a few years ago he had said specific prayers with Nay that could help with the demonic oppression she felt, and the need to jumpstart her ras. I reached Rev. Cox. He didn't remember Nay or the prayers and said he didn't feel he should get involved since he is no longer in the area. Nay than asked for Rev. Kathya Carrington's phone number. (Mili is a retired [employer] cardiology physician in [place] and an on-call ambulance paramedic here.) I checked with Mili to make sure it was okay to give Nay her number and did that with Mili's permission. I also gave Nay a prayer shawl. I'll continue to visit.
--- NOTE | 2020-12-09 15:54 | PDOC.CMSAFE ---
- If Service Date Differs Date of service: 12/09/20 Time of Service: 15:54 Care Management Safety Plan Status: Voluntary VOLUNTARY FOR INPATIENT PSYCHIATRIC STABILIZATION. Nay is appropriate in all interactions since arriving at [facility]; she has demonstrated appropriate coping and communication skills, has articulated her needs and concerns and is fully engaged during staff interactions. Safety plan has been established with patient, and care team, to adhere to patient goals, identify restrictions based on behavioral status, address nutrition, and determine allowed personal belongings, tools for hygiene and personal care. Determine level of activity including ambulation, level of supervision, visitors, and determine privileges based on behaviors and level of engagement by pt. A decentralized interdepartmental huddle was facilitated by CM with [facility] screener Kaitlin, nursing motion picture equipment supervisor Ashlie, OLLIE Borrego, and Nurse Christine for safety planning considerations. CM met with patient to review [facility] policy and safety plan, establish individual wishes for treatment and maintain patient rights. Please note safety plan below to guide patient care: SAFETY PLAN: 1. Will remain on suicide precautions. May wear hospital maribel. 2. Will remain in room under direct supervision of one-on-one staff at all times provided by KENZIE, STAFF NURSE retail cosmetics sales beauty advisor. 3. May have paper cups, plates, finger foods as well as a metal spoon with which to eat meals. 4. Follow [facility] Management of the Admitted Behavioral Health Patient policy. 5. Comfort bath system while in the ICU. 6. Personal belongings limited to books, cards. 7. Kathya Rolon, bridge crew member, may visit. 8. Phone contact limited to Slade, son Pedro, daughter Angi and Kathya from clergy.. 9. Due to VOLUNTARY status, if patient wishes to leave [facility], staff will contact [facility] Crisis Screener ([phone]) and On-Call Unit Coordinator ([phone]) as soon as possible. In the event of elopement, notify [facility] Police ([phone]). If deemed appropriate for inpatient psychiatric care, safety plan will be established with patient, and care team, to adhere to patient goals, identify restrictions based on behavioral status, address nutrition, and determine allowed personal belongings, tools for hygiene and personal care. As well plan will determine level of activity including ambulation, level of supervision, visitors, and determine privileges based on level of acuity, behaviors and level of engagement by patient.
--- NOTE | 2020-12-09 18:39 | PDOC.MHCN ---
Date of service: 12/09/20 Time of Service: 18:39 Mental Health Crisis Note Presenting Issue How did you arrive at the ED and why did you come: Pt arrived two days ago via ambulance after she took 60 .5g Lorazepam in an intentional act to by suicide. Precipitating Factors Pt reported she is still having thoughts to by suicide. She is not showing any signs of delusions. Disposition BEHAVIOR: Pt struggled with engagement via zoom so a face to face was done. Pt is more able to engage in the assessment once wea re face to face. She is very tearful and ashamed of her feelings yet continues to endorse a feeling of worthlessness, [id number] and helplessness. EYE CONTACT: Pt made fair eye contact today. MOOD: Pt reports feelings of not wanting ot be here anymore. She presents as depressed and withdrawn. AFFECT: Pt's affect is flat and depressed. APPETITE: Pt reported that she is struggling to eat but is making an effort to eat. SLEEP(trouble falling/staying asleep: Pt reported she cannot sleep unless she takes her sleeping medications. Plan Pt is unable to at this time do a safety plan as she is too acutely depressed and unsure, per her self report and current presentation. She is agreeable to accepting an inpatient referral for her depression and anxiety and to help give her better coping skills for when she is able to return to her day to day life at home. Until such time she will remain at [facility]. Referrals were made to [facility]. Signature Clinician's Name/Title: Kaitlin Mendoza MS, [facility] Emergency Services Clinician
[2020-12-10] VITALS (10 sets, daily range): BP systolic 113–147; BP diastolic 57–92; PULSE 59–109; RESP 16–22; TEMP 36.3–36.6; O2SAT 96–99
[2020-12-10] MEDS: Naproxen 500 MG TAB PO ×2 (08:21→20:00)
[2020-12-10] MEDS: Propranolol 60 MG CAPCR PO (08:21)
[2020-12-10] MEDS: Normal Saline Flush 10 ML SYR IVP ×2 (08:22→20:49)
--- NOTE | 2020-12-10 09:35 | NUR.NOTE ---
Nursing Note:This morning patient requesting shower. This nurse finds patient to be stable and not at risk of harming herself at present time. KENZIE Ramos Walker to assist patient in shower and keep patient in line of sight at all times. Dr. Rachel Kay notified and agrees to plan.
--- NOTE | 2020-12-10 11:30 | W.NUTRFU ---
Date of service: 12/10/20 Time of Service: 11:30 Nutritional Follow up NOTE: 65 year old female admitted with lorazepam overdose with hx of depression and HTN. BMI wnl for age. Tolerating regular diet. Not at nutritional risk at this time. will continue to follow. Time Spent in Nutritional Counseling and Treatment: 0
--- NOTE | 2020-12-10 12:46 | CMPROGNOTE_ITS ---
- If Service Date Differs Date of service: 12/10/20 Time of Service: 12:46 Care Management Progress Note S/O: Nay was sitting up in a chair when CM met with her. She was alert, smiling at times, and stated that she feels much better. During a Zoom meeting with [facility] screener, when asked if she felt she would attempt suicide again, she answered emphatically: No. Once is quite enough. She talked about her ras and her family as being reasons to keep living. Nay has been accepted at [facility] and is scheduled for admission tomorrow morning. has requested transport for 10 am through [facility]. A: Nay is a 65 year old woman admitted on 12/08/20 following an intentional overdose of Lorazepam P:Nay has been accepted at [facility]. Transportation has been requested for 10am tomorrow with [facility]. When discharged form [facility] Nay will follow up with her community providers and plan of care. CM will continue to support Nay and her family and her discharge planning concerns.
--- NOTE | 2020-12-10 15:16 | PGE_ITS ---
Date of Service Date of service: 12/10/20 Time of Service: 09:36 Assessment and Plan Assessment and plan (1) Lorazepam overdose: Status: Acute Assessment and plan: Planning d/c to [facility]. She has been medically cleared. Qualifiers: Encounter type: initial encounter Injury intent: intentional self-harm Qualified Code(s): T42.4X2A - Poisoning by benzodiazepines, intentional self- harm, initial encounter (2) Polymyalgia rheumatica: Status: Acute Assessment and plan: + Psoriatic arthritis. Cont Naprosyn 500mg BID (3) Essential hypertension: Status: Chronic Assessment and plan: Restart her home HCTZ 12.5mg daily. Monitor. (4) Anxiety: Status: Chronic Assessment and plan: Will defer psychiatric medications to provider at [facility] when admitted there. Atarax prn for anxiety. Subjective Subjective Patient reports: no new complaints, feels better and afebrile; denies shortness of breath Interval history since last seen: No WEIR. She endorses an ongoing desire for psychiatric intervention. Exam Const General: cooperative and no acute distress Nutritional Appearance: average body habitus Orientation: alert and oriented x3 Eyes Sclera: sclerae normal Pupils: PERRL Resp Effort & Inspection: normal respiratory effort Auscultation: clear to auscultation bilaterally Cardio Jugular venous pressure: no JVD Rate: regular rate Rhythm: regular rhythm Heart Sounds: S1 normal and S2 normal Neuro General: moves all extremities and no focal motor deficits Cognition: normal cognition Speech: speech normal Extrem General: no pedal edema and no calf tenderness Psych Mood: congruent mood Affect: normal affect Objective Last Vital Signs Temp 36.6 C 12/10/20 04:30 Pulse 75 12/10/20 08:00 Resp 19 12/10/20 09:00 BP 142/83 H 12/10/20 08:00 Pulse Ox 97 12/10/20 04:30
--- NOTE | 2020-12-10 16:59 | PDOC.CMSAFE ---
- If Service Date Differs Date of service: 12/10/20 Time of Service: 16:59 Care Management Safety Plan Status: Voluntary VOLUNTARY FOR INPATIENT PSYCHIATRIC STABILIZATION. Nay is appropriate in all interactions since arriving at [facility]; she has demonstrated appropriate coping and communication skills, has articulated her needs and concerns and is fully engaged during staff interactions. Safety plan has been established with patient, and care team, to adhere to patient goals, identify restrictions based on behavioral status, address nutrition, and determine allowed personal belongings, tools for hygiene and personal care. Determine level of activity including ambulation, level of supervision, visitors, and determine privileges based on behaviors and level of engagement by pt. A decentralized interdepartmental huddle was facilitated by CM with [facility] screener Kaitlin, nursing supervisor quality control Ashlie, OLLIE Borrego, and Nurse Christine for safety planning considerations. CM met with patient to review [facility] policy and safety plan, establish individual wishes for treatment and maintain patient rights. Please note safety plan below to guide patient care: SAFETY PLAN: 1. Will remain on suicide precautions. May wear hospital maribel. 2. Will remain in room under direct supervision of one-on-one staff at all times provided by KENZIE, TUBER HELPER supervisor cell efficiency. 3. May have paper cups, plates, finger foods as well as a metal spoon with which to eat meals. 4. Follow [facility] Management of the Admitted Behavioral Health Patient policy. 5. May shower under direct supervision and at the discretion of nursing. 6. Personal belongings limited to books, cards, toothbrush, hairbrush. 7. Kathya Rolon, multiple launch rocket system crewmember, may visit. 8. Phone contact limited to Slade, son Pedro, daughter Angi and Kathya from clergy.. 9. Due to VOLUNTARY status, if patient wishes to leave [facility], staff will contact [facility] Crisis Screener ([phone]) and On-Call Sped Teacher ([phone]) as soon as possible. In the event of elopement, notify [facility] Police ([phone]). If deemed appropriate for inpatient psychiatric care, safety plan will be established with patient, and care team, to adhere to patient goals, identify restrictions based on behavioral status, address nutrition, and determine allowed personal belongings, tools for hygiene and personal care. As well plan will determine level of activity including ambulation, level of supervision, visitors, and determine privileges based on level of acuity, behaviors and level of engagement by patient. cc:
--- NOTE | 2020-12-10 19:06 | MHPN_ITS ---
Date of service: 12/10/20 Time of Service: 19:06 Mental Health Crisis Note Presenting Issue How did you arrive at the ED and why did you come: How did you arrive at the ED and why did you come: Pt arrived two days ago via ambulance after she took 60 .5g Lorazepam in an intentional act to by suicide. Precipitating Factors Today pt denied having any suicidal thoughts. She is not showing any signs of delusions. Disposition BEHAVIOR: Pt is cooperative and engaged. She is more active today and is showing a more appropriate level of embarrassment regarding the decision she made as a result of all the stresses she was facing. She is looking forward to going to [facility] which is slated for tomorrow. She is planning what she ne eds to do while there to return back home healthier and in a better place. EYE CONTACT: Eye contact is great. MOOD: Pt's mood is still depressed but is more hopeful that she has been since coming to [facility] for this visit. AFFECT: Pt's affect is more peaceful and hopeful. APPETITE: Pt reported that she is trying to improve her eating daily. SLEEP(trouble falling/staying asleep: Pt reported that she is still tired and needs more rest to feel 100% but she is improving. Sleep has been a real struggle for her. Plan Pt is able to recognize that she is in crisis when her thought process starts to decline, she is not sleeping and makes constant to-do lists to remember what it is she needs tod do. She also identifies that she is not the one that realizes that she is there first. Pt identified that her will start to ask her what is going on. Pt reported that currently she tries to ove rcompensate for not being able to do it all. Pt identified her , friends, jain and God as her natural supports. She identified Dr. Cruz and her executive secretary social welfare as her professional supports. Pt enjoys cross country skiing and bike riding with her . Pt identified that God and her are both the reasons for living. Pt identified that her goal while at [facility] is to take in all the coping skills she can get and allow them to walk her through this process. We discussed her looking at her struggle with setting boundaries and wishes for her to be able to say no when she comes back home. She will be transported to [facility] tomorrow via ambulance.
[2020-12-10] MEDS: Enoxaparin 40 MG/0.4 ML SYR SC (19:59)
[2020-12-10] MEDS: hydrOXYzine HCL 25 MG TAB PO (20:48)
--- NOTE | 2020-12-11 08:40 | W.PM.PROGNOT ---
Subjective Subjective Interval history since last seen: No complaints. VSS. took atarax last night, didn't sleep until 1 am. Helped feel less restless. Leaving by 10 to go to [place] [facility] [place]. Voluntary/agreeable. Objective Last Vital Signs Temp 36.3 C L 12/10/20 21:00 Pulse 61 12/10/20 21:00 Resp 16 12/10/20 21:00 BP 147/62 H 12/10/20 21:00 Pulse Ox 99 12/10/20 21:00
[2020-12-11 09:16] VITALS: O2SAT 96
[2020-12-11 09:17] VITALS: BP 137/81; PULSE 73
[2020-12-11] MEDS: Propranolol 60 MG CAPCR PO (09:23)
[2020-12-11] MEDS: hydroCHLOROthiazide 12.5 MG TAB PO (09:23)
[2020-12-11] MEDS: Naproxen 500 MG TAB PO (09:23)
[2020-12-11] MEDS: Normal Saline Flush 10 ML SYR IVP (09:24)
--- NOTE | 2020-12-11 10:33 | W.PM.DS.N ---
Date of service: 12/11/20 Time of Service: 09:50 DS: Diagnosis Discharge Diagnosis (1) Suicide attempt by drug overdose: Status: Acute (2) Lorazepam overdose: Status: Acute (3) Anxiety: Status: Chronic (4) Polymyalgia rheumatica: Status: Chronic (5) Essential hypertension: Status: Chronic (6) COVID-19 ruled out by laboratory testing: Status: Ruled-out Discharge Plan Disposition Patient Disposition: OTHER Condition: Serious Discharge Details Reason For Visit: LORAZEPAM OVERDOSE Admit Date/Time: 12/08/20 02:33 Admit Provider: Hilario Renteria Attending Provider: Hilario Renteria Primary Care Provider: Shantal Cruz Hospital Course Hospital Course: Ms Duque is a 65 year old female with PMHx of anxiety, as well as h/o hypertension, PMR and psoriasis, who was admitted to [facility] ICU under the hospitalist service on 12/08/2020 after an intentional lorazepam overdose in a suicide attempt. She did not require intubation for respiratory support. She was medically cleared by hospital day 2. She was evaluated by mental health and was felt to benefit from an inpatient psychiatric admission on voluntary basis. She was accepted at [facility] by [employer] Ino Collier. On day of discharge, the patient remains willing to go for inpatient psychiatric management and is medically stable. Home Meds and New Rx's Prescriptions: New hydroxyzine HCl 25 mg Tablet 25 mg PO TID PRN PRNQty: 0 RF: 0 hydrocortisone 2.5 % Ointment 0 g topical TID PRN PRNQty: 0 RF: 0 Continued naproxen sodium [Aleve] 220 mg tablet 440 mg PO BID PRNRF: 0 melatonin 10 mg capsule 10 mg PO HS PRNRF: 0 cyclobenzaprine 5 mg tablet 5 mg PO BID PRN (Reason: muscle spasm) Qty: 30 RF: 0 CALCIUM 600 + D TABLET 1 EACH tablet 1 ea PO BID RF: 0 cholecalciferol (vitamin D3) 1,000 UNIT capsule 2,800 unit PO DAILY RF: 0 acetaminophen [Tylenol Extra Strength] 500 MG tablet 1,000 mg PO BID PRNQty: 100 RF: 0 compression stocking 1 unit Topical DAILY Qty: 1 RF: 1 estradiol [Yuvafem] 10 mcg tablet 10 mcg VG .twice weekly Qty: 24 RF: 4 propranolol 60 mg capsule,extended release 24 hr 60 mg PO DAILY Qty: 90 RF: 12 hydrochlorothiazide 12.5 mg tablet 12.5 mg PO BID RF: 0 Discontinued lorazepam 0.5 mg tablet 0.5 mg PO HS MDD 1 PRN (Reason: sleep) Qty: 90 RF: 0 Discharge Instructions Referrals: Shantal Cruz MD, [place] [Primary Care Provider] - Activity:: Activity as Tolerated Equipment/Supplies:: No Equipment Needed Diet:: As Tolerated Discharge Orders Discharge Orders: Discharge Order (Routine); Ordered 12/11/20 Ordered By: Tari Valle DS: Summary Time Spent with Patient providing and/or coordinating discharge services: Less than 30 minutes Status at Discharge Functional status at discharge: independent ambulation Overall status at discharge: patient is not back to baseline Mental Status: mental status grossly normal Speech and Movement: speech and movement normal Mood: anxious mood Affect: normal affect Exam Narrative Exam Narrative: General: Pleasant middle-aged female, appears anxious, A&Ox3, conversant, cooperative HEENT: EOMI, MMM Heart: RRR, no m/r/g Lungs: CTAB Abdomen: soft, nontender, nondistended Extremities: no edema/clubbing/cyanosis BLEs Psych Mental Status: mental status grossly normal Speech and Movement: speech and movement normal Mood: anxious mood Affect: normal affect DS: Data Vitals/I&O Vitals and I&O: Vital Signs Temperature 36.3 C L 12/10/20 21:00 Temperature Source Temporal Artery Scan 12/10/20 21:00 Pulse 73 12/11/20 09:17 Pulse Rhythm Regular 12/10/20 21:00 Pulse 109 H 12/10/20 09:00 Respiratory Rate 16 12/10/20 21:00 Respiratory Effort 12/10/20 21:00 Respiratory Depth Normal 12/10/20 21:00 Respiratory Pattern Normal 12/10/20 21:00 Blood Pressure 137/81 12/11/20 09:17 Blood Pressure Mean 91 12/11/20 09:17 Blood Pressure Position Sitting 12/10/20 04:30 Pulse Oximetry 96 12/11/20 09:16 Oxygen Delivery Method Room Air 12/10/20 21:00 Oxygen Flow Rate 0 12/10/20 21:00 Pain Level 0 12/10/20 08:30 Intake & Output 12/10/20 12/10/20 12/11/20 11:59 23:59 11:59 Intake Total 730 / 730 360 / 360 Output Total 550 / 1400 850 / 1400 600 / 600 Balance 180 / -670 -850 / -670 -240 / -240 Weight 56.7 kg Intake: Oral 730 / 730 360 / 360 Output: Urine 550 / 1400 850 / 1400 600 / 600 Other: Urine Color Pale Pale Yellow Yellow Yellow Urine Appearance Clear Clear Clear Urine Odor None None Normal Comment s/p hyst mixed with stool Stool Size Small Moderate Stool Characteristics Soft Soft Formed Voiding Methods Bedside Commode Bedside Commode Bedside Commode [facility] Medical History Amnesia Bizarre behavior; resolved and recurr associated with fatigue Annual physical exam (05/06/15) Anxiety (11/11/15) Essential hypertension (09/15/13) Hair loss (08/31/16) Insomnia, unspecified (11/11/15) Medial meniscus tear (05/04/14) Polymyalgia rheumatica 11/23/15 Sed Rate 55; CRP 31.3 Psoriasis 11/23/15 [facility] [place] Psoriatic arthropathy (02/05/14) Skin tags, multiple acquired Superficial thrombosis of left lower extremity (01/31/16) Vaginal atrophy (11/11/15) Surgical History Arthroscopy 05/04/14- DR. SOMERS; LEFT KNEE H/O arthroscopic knee surgery 10/15/13 partial medial meniscectomy; excision of synovial impingment; lysis of adhesions in suprapatellar pouch and anteromedial aspect of the knee. History of arthroscopy of knee History of excision of lesion squamous cell CA from neck History of surgical removal of lesion Hysterectomy, Laproscopic (~1998) LEFT THUMB FRACTURE 06/26/17 S/P laparoscopic hysterectomy 10/15/98 Skin Cancer Removal SQUAMOUS CELL CA FROM NECK Status post laparoscopic hysterectomy Family History Mother Dementia Depression Hyperlipidemia Father [employer] lymphoma Sister Stroke Cervical cancer + nodes b/l Brother Diabetes Essential hypertension Hyperlipidemia Maternal Grandfather Diabetes Essential hypertension Paternal Grandfather Diabetes Essential hypertension Stroke Maternal Grandmother Essential hypertension Paternal Grandmother Essential hypertension Hyperlipidemia Abdominal malignancy Son No problems noted. Daughter No problems noted. 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 Pets and animals: No Sexually active: Yes Do you think of yourself as: straight/heterosexual Current gender identity: female What is your relationship status?: How often do you talk on the phone with friends or family?: three or more times per week How often do you get together with friends or relatives?: three or more times per week How often do you attend hinduism or hinduism services?: 4 or more times per year Do you belong to any clubs or organized social groups?: yes Panel score (0-1 are the most socially isolated patients): 4 What type of physical activity do you participate in: bicycling and other Details: X-COUNTRY SKIING IN WINTER, BIKING/HIKING SUMMER Duration: 45-60 minutes/day Frequency: 3-4 times per week Evangelina/Taoist: Islam Agree to transfusion: No Seatbelt use: always Helmet use: Yes Helmet use: always Drive intox or ride w/intox city route driver: No
--- NOTE | 2020-12-11 10:47 | CMDISCH_ITS ---
- If Service Date Differs Date of service: 12/11/20 Time of Service: 10:47 LACE Index Scoring Tool - Questions: Length of Stay (in days): 3 Acuity (Admit via E.D.?): Yes E.D. Visits: 1 - Answers: Total Score: 7 Risk of Readmission: Low Risk Care Management Discharge Reason for Hospitalization: Lorazepam overdose Discharge Plan: Nay was transferred to [facility], the geriatric psychiatric department at [facility], for psyhciatric stabilization. She was transported via ambulance by [facility]. She will follow up with [facility], her PCP and her discharge plan of care once discharged from [facility]. She is happy to be going to [facility]. Patient/Family Education Needs: Review discharge instructions and expectations of [facility], discussion of self care needs and goals of care. Services Needed at Discharge: Psychiatric Facility ([facility]), Transportation ([employer])
[2020-12-15 07:35] LABS: 2-OH-Ethyl-Flurazepam Negative ng/mL (Cutoff: 10); 7-NH-Clonazepam Negative ng/mL (Cutoff: 10); 7-NH-Flunitrazepam Negative ng/mL (Cutoff: 10); Alpha OH-Alprazolam Negative ng/mL (Cutoff: 10); Alpha-OH Midazolam Negative ng/mL (Cutoff: 10); Alpha-OH-Triazolam Negative ng/mL (Cutoff: 10); Alprazolam Negative ng/mL (Cutoff: 10); Benzodiazepines Interpretation Positive.; Chlordiazepoxide Negative ng/mL (Cutoff: 10); Clobazam Negative ng/mL (Cutoff: 10); Clonazepam Negative ng/mL (Cutoff: 10); Diazepam Negative ng/mL (Cutoff: 10); Flurazepam Negative ng/mL (Cutoff: 10); Lorazepam 14000 ng/mL (Cutoff: 10); Midazolam Negative ng/mL (Cutoff: 10); N-Desmethylclobazam Negative ng/mL (Cutoff: 10); Prazepam Negative ng/mL (Cutoff: 10); Temazepam Negative ng/mL (Cutoff: 10); Triazolam Negative ng/mL (Cutoff: 10); Zolpidem Carboxylic acid Negative ng/mL (Cutoff: 10)
== END 2020-12-11 10:25 | disposition other institution (70) | DRG 918 ==
LOC: ER 02:48 → ICU 03:18
PROVIDERS: Family Medicine; Admitting Provider Internal Medicine; Emergency Provider Emergency Medicine; PCP Family Medicine; Visit Provider Internal Medicine
DX: T42.4X2A Poisoning by benzodiazepines, intentional self-harm, initial encounter (principal); R40.0 Somnolence; I10 Essential (primary) hypertension; F41.9 Anxiety disorder, unspecified; M35.3 Polymyalgia rheumatica; R41.3 Other amnesia; L40.50 Arthropathic psoriasis, unspecified; Z86.718 Personal history of other venous thrombosis and embolism; G47.00 Insomnia, unspecified; Z20.822 Contact with and (suspected) exposure to COVID-19
CPT/HCPCS: 36415; 36416; 80053; 80307; 82550; 82962; 93005; 96360; 99223; 99232; 99238; 99253; 99285; J1650; 70450; 80320; 80329; 80346; 81003; 82248; 83735; 85025; 85610; 85730; 93010; J3490

== ENCOUNTER 2021-04-25 01:52 | Outpatient (CLI) | payer MEDICARE, SELFPAY ==
--- NOTE | 2021-04-25 15:49 | DI.MAMMO_ITS ---
Exam(s) MAMMO SCREENING EXAM: MAMMO SCREENING CLINICAL HISTORY: SCREENING, Z12.31. TECHNIQUE: Bilateral full field digital CC and MLO mammographic images were obtained with 3D tomosyn thesis and utilizing computer aided detection (CAD). COMPARISON: Prior mammograms dating back to 2010, the most recent being August 2019. FINDINGS: There are no new spiculated masses nor malignant appearing microcalcification groups. There is no significant architectural distortion nor skin thickening-retraction. IMPRESSION: No radiographic evidence of malignancy. BI-RADS Category 1 - Negative Breast Density - Category B - Scattered areas of fibroglandular density Breast density Category C or D implies that the patient has dense breast tissue. Dense breast tissue can make it harder to find cancer on a mammogram. Dense breast tissue is also associated with an incr eased risk of breast cancer. This information about the result of the mammogram report was provided to the patient to raise their awareness. Use this report when you speak with the patient about their risks for breast cancer, which includes their family history. At that time, you may recommend additional screening tests (Ultrasoun d or MRI) as these tests may add significant information. A negative radiographic report should not delay biopsy if a dominant or clinically suspicious mass is present. Up to ten percent of cancers are not identified on mammography. A negative report may reinforce clinical impression. Adenosis and dense breasts may obscure an underlying neoplasm. False positive reports average 6 to 10%. Patient will receive a letter notifying them of these results.
== END 2021-04-25 02:12 ==
PROVIDERS: PCP Family Medicine; Visit Provider Obstetrics & Gynecology
DX: Z12.31 Encounter for screening mammogram for malignant neoplasm of breast (principal); R92.8 Other abnormal and inconclusive findings on diagnostic imaging of breast
CPT/HCPCS: 77063; 77067

== ENCOUNTER 2021-05-10 10:45 | Emergency (ER) | payer MEDICARE, SELFPAY ==
--- NOTE | 2021-05-10 11:00 | RT.EKG_ITS ---
APPROVED REPORT Exam: Resting ECG Reason for Exam: pyschosis Patient Location: E HR:63 bpm ECG Measurements Heart Rate 63 AXIS RI 172 P 0 QRSd 86 QRS -33 QT 437 T -39 QTc 449 Conclusion Sinus rhythm...normal P axis, V-rate 60- 99 Probable left atrial enlargement...P >50mS, <-0.10mV V1 Left ventricular hypertrophy...multiple LVH criteria Tall R wave in V2, consider RVH or PMI...R/S ratio >3, T >0.30mV V1 V2. No STEMI. I have reviewed and interpreted ECG and agree with software generated interpretation.
[2021-05-10] MEDS: Haloperidol 5 MG/ML VIAL 2 MG IM (11:17)
[2021-05-10 11:18] VITALS: BP 147/84; PULSE 71; RESP 18; TEMP 37; O2SAT 97
[2021-05-10] MEDS: LORazepam 2 MG/ML VIAL 1 MG IM (11:18)
--- NOTE | 2021-05-10 11:38 | ED.GENADUL_ITS ---
Discharge Plan Disposition Patient Disposition: HOME Condition: Stable Discharge Details Clinical Impression: Mood disorder Primary Care Provider: Shantal Cruz ED Provider: Christine Little Home Meds and New Rx's Prescriptions: No Action naproxen sodium [Aleve] 220 mg tablet 440 mg PO BID PRNRF: 0 melatonin 10 mg capsule 10 mg PO HS PRNRF: 0 cyclobenzaprine 5 mg tablet 5 mg PO BID PRN (Reason: muscle spasm) Qty: 30 RF: 0 propranolol 60 mg capsule,extended release 24 hr 60 mg PO DAILY Qty: 90 RF: 12 escitalopram oxalate 10 mg tablet 10 mg PO DAILY Qty: 90 RF: 5 mirtazapine 15 mg tablet 15 mg PO QHS Qty: 90 RF: 4 quetiapine 25 mg tablet 25 mg PO QHS Qty: 90 RF: 5 diclofenac sodium [Arthritis Pain (diclofenac)] 1 % gel 2 g topical BID PRNRF: 0 cholecalciferol (vitamin D3) 50 mcg (2,000 unit) capsule 50 mcg PO DAILY RF: 0 CALCIUM 600 + D TABLET 1 EACH tablet 1 ea PO BID RF: 0 acetaminophen [Tylenol Extra Strength] 500 MG tablet 1,000 mg PO BID PRNQty: 100 RF: 0 compression stocking 1 unit Topical DAILY Qty: 1 RF: 1 estradiol [Yuvafem] 10 mcg tablet 10 mcg VG .twice weekly Qty: 24 RF: 4 hydroxyzine HCl 25 mg Tablet 25 mg PO TID PRN PRNQty: 0 RF: 0 hydrocortisone 2.5 % Ointment 0 g topical TID PRN PRNQty: 0 RF: 0 hydrochlorothiazide 12.5 mg tablet 12.5 mg PO DAILY RF: 0 Discharge Instructions Additional Instructions: 06/[address] Cruz Please take all your meds as instructed return with any persistent symptoms, inability to take medication, or with new or worsening complaints Medical Decision Making Patient was very agitated and combative and for patient and staff safety, category with called immediately and the state please were called for safety Patient was placed in soft restraints and 1 mg of IM Ativan was initiated in addition to 2 mg of IM Haldol We are unable to obtain an EKG prior to administering Haldol secondary to patient's combative state After receiving these medications, she was much more cooperative Restraints are in place for no longer than 1 hour and patient was calm and conversive with staff at this time Her vitals are stable Her diagnostic labs do not show any acute abnormality and her CT brain was negative for any intracranial process per radiology interpretation in my review Given her past medical history of similar other although worsening symptoms, she will need hospitalization , Mr. Duque has been very cooperative and is patient's healthcare proxy, given that patient is not able to make her own decisions at this time, he will accept her DPOA and she is agreeable with her diagnostic labs and CT imaging and medication administration for [facility], was contacted, however patient is quite sleepy at this time and unfortunately wrist was not able to perform until health evaluation, she will contact patient's Patient being evaluated by [facility] at this time She is calm and cooperative with a nonfocal neurological exam, disposition pending at this time [facility] states the patient does not meet any criteria for IEA, patient, cooperative, alert and oriented, and of decisional capacity Patient is declining admission at this time and remains voluntary status I did discuss with , Slade and she is willing to pick up and able to care for her, he will return immediately with new or worsening complaints He states that he will be sure to watch administer medications Patient has been observed and have been calm and cooperative for approximately 4-1/2 hours at time of reevaluation patient will be discharged when arrives at approximately 1730 HPI General Mode of arrival: ambulatory . Date/Time Provider Initiated Documentation: 05/10/21 10:47 . Limitations to Documentation: no limitations . Information obtained by: patient . HPI Narrative: 66-year-old female with past medical history of depression, anxiety, insomnia, hypertension, PMR who presents with acute psychosis. Per patient has been escalating throughout the week. He states that she has been on a high . He states she has been very social and is have lots of friends around the house. He states she is not sleeping much and this usually triggers depression. She reportedly had a overdose in November and was hospitalized for 1 month. He states she has been doing well since that time. He states that he thinks she is taking her medications as prescribed but he does not check to confirm. She denies any known suicide attempt. He states he awoke this morning to find her cooking elaborate dinner which I know on the people at 2 AM. He also states that all his adults in their daughter's room has been placed on display. He states that they subsequently went to a this morning and she began screaming the name repetitively. He subsequently placed her in the car and brought her to the emergency room for evaluation out of concern for safety. He states that she did have a similar episode in 2013 but states that it never persisted for quite this long. He denies known history of bipolar disorder. He states she has major depressive disorder with anxiety. He denies any known illicit drug use. She states that she has not been suicidal this week. Related Data Home Medications Medication Instructions Recorded Confirmed Calcium 600 + D Tablet 1 ea PO BID 03/17/13 05/03/21 acetaminophen [Tylenol Extra 1,000 mg PO BID PRN #100 tab-cap 04/30/14 05/03/21 Strength] estradiol 10 mcg vaginal tablet 10 mcg VG .twice weekly #24 tab 07/18/18 05/03/21 melatonin 10 mg capsule 10 mg PO HS PRN 07/22/19 05/03/21 naproxen sodium 220 mg tablet 440 mg PO BID PRN tab 07/22/19 05/03/21 cyclobenzaprine 5 mg tablet 5 mg PO BID PRN #30 tab-cap 07/26/20 05/03/21 hydrocortisone 0 g TOPICAL TID PRN PRN #0 g 12/11/20 05/03/21 hydroxyzine HCl 25 mg PO TID PRN PRN #0 tab 12/11/20 05/03/21 cholecalciferol (vitamin D3) 50 50 mcg PO DAILY 01/11/21 05/03/21 mcg (2,000 unit) capsule diclofenac sodium 1 % topical gel 2 g TOPICAL BID PRN g 01/11/21 05/03/21 hydrochlorothiazide 12.5 mg tablet 12.5 mg PO DAILY tab 01/11/21 05/03/21 escitalopram oxalate 10 mg tablet 10 mg PO DAILY #90 tab 01/24/21 05/03/21 mirtazapine 15 mg tablet 15 mg PO QHS #90 tab 01/24/21 05/03/21 quetiapine 25 mg tablet 25 mg PO QHS #90 tab 01/24/21 05/03/21 propranolol 60 mg capsule,24 60 mg PO DAILY #90 tab 05/03/21 05/03/21 hr,extended release Previous Rx's Medication Instructions Recorded estradiol 10 mcg vaginal tablet 10 mcg VG .twice weekly #24 tab 07/18/18 cyclobenzaprine 5 mg tablet 5 mg PO BID PRN #30 tab-cap 07/26/20 hydrocortisone 0 g TOPICAL TID PRN PRN #0 g 12/11/20 hydroxyzine HCl 25 mg PO TID PRN PRN #0 tab 12/11/20 escitalopram oxalate 10 mg tablet 10 mg PO DAILY #90 tab 01/24/21 mirtazapine 15 mg tablet 15 mg PO QHS #90 tab 01/24/21 quetiapine 25 mg tablet 25 mg PO QHS #90 tab 01/24/21 propranolol 60 mg capsule,24 60 mg PO DAILY #90 tab 05/03/21 hr,extended release Allergies Allergy/AdvReac Type Severity Reaction Status Date / Time Barbiturates Allergy Unknown Unverified 05/03/21 08:55 phenylbutazone Allergy Unknown Unverified 05/03/21 08:55 codeine AdvReac Intermediate N/V Unverified 05/03/21 08:55 lisinopril AdvReac Mild cough Unverified 05/03/21 08:55 caffeine AdvReac Unknown N/V Unverified 05/03/21 08:55 ergotamine AdvReac Unknown N/V Unverified 05/03/21 08:55 erythromycin base AdvReac Unknown Unverified 05/03/21 08:55 morphine AdvReac Unknown Unverified 05/03/21 08:55 clonidine AdvReac bottomed Verified 05/03/21 08:55 out my BP General Stated Complaint: PsychEval DAVIAN: 2 Review of Systems All systems reviewed & are unremarkable except as noted in HPI and below FOR[facility]LY [facility], [facility] Medical History (Updated 05/10/21 @ 16:16 by GEORGETTE Skinner) Amnesia Bizarre behavior; resolved and recurr associated with fatigue Annual physical exam (05/06/15) Anxiety (11/11/15) COVID-19 ruled out by laboratory testing Essential hypertension (09/15/13) Hair loss (08/31/16) Insomnia, unspecified (11/11/15) Medial meniscus tear (05/04/14) Polymyalgia rheumatica 11/23/15 Sed Rate 55; CRP 31.3 Psoriasis 11/23/15 [facility] Psoriatic arthropathy (02/05/14) Skin tags, multiple acquired Superficial thrombosis of left lower extremity (01/31/16) Vaginal atrophy (11/11/15) Surgical History Arthroscopy 05/04/14- DR. SOMERS; LEFT KNEE H/O arthroscopic knee surgery 10/15/13 partial medial meniscectomy; excision of synovial impingment; lysis of adhesions in suprapatellar pouch and anteromedial aspect of the knee. History of arthroscopy of knee History of excision of lesion squamous cell CA from neck History of surgical removal of lesion Hysterectomy, Laproscopic (~1998) LEFT THUMB FRACTURE 06/26/17 S/P laparoscopic hysterectomy 10/15/98 Skin Cancer Removal SQUAMOUS CELL CA FROM NECK Status post laparoscopic hysterectomy Family History Mother Dementia Depression Hyperlipidemia Father TUNNEL MAN lymphoma Sister Stroke Cervical cancer + nodes b/l Brother Diabetes Essential hypertension Hyperlipidemia Maternal Grandfather Diabetes Essential hypertension Paternal Grandfather Diabetes Essential hypertension Stroke Maternal Grandmother Essential hypertension Paternal Grandmother Essential hypertension Hyperlipidemia Abdominal malignancy Son No problems noted. Daughter No problems noted. 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 [employer] Pets and animals: No Sexually active: Yes Do you think of yourself as: straight/heterosexual Current gender identity: female What is your relationship status?: How often do you talk on the phone with friends or family?: three or more times per week How often do you get together with friends or relatives?: three or more times per week How often do you attend advent or zoroastrianism services?: 4 or more times per year Do you belong to any clubs or organized social groups?: yes Panel score (0-1 are the most socially isolated patients): 4 What type of physical activity do you participate in: bicycling and other Details: X-COUNTRY SKIING IN WINTER, BIKING/HIKING SUMMER Duration: 45-60 minutes/day Frequency: 3-4 times per week Evangelina/Holiness: Synagogue Agree to transfusion: No Seatbelt use: always Helmet use: Yes Helmet use: always Drive intox or ride w/intox [employer] delivery driver: No Exam Const General: in distress and combative Orientation: alert Limitations: behavioral limitations HENMT Head: normal to inspection Mouth: oral mucosae normal Eyes Pupils: PERRL Chest Chest: normal inspection of the chest Resp Effort & Inspection: normal respiratory effort Auscultation: clear to auscultation bilaterally Cardio Rate: regular rate Rhythm: regular rhythm GI Inspection: normal to inspection Skin General skin exam: no rashes or lesions noted Neuro General: patient alert Cranial Nerves: PERRL Psych Appearance: well kempt Speech and Movement: agitated Mood: manic mood Affect: hostile Attitude: belligerent Thought Process: illogical Thought Content: delusions Insight: poor Judgment: poor Course Vital Signs Vital signs: Vital Signs Temperature 37.0 C 05/10/21 11:18 Pulse 71 05/10/21 11:18 Respiratory Rate 18 05/10/21 11:18 Blood Pressure 147/84 H 05/10/21 11:18 Pulse Oximetry 97 05/10/21 11:18 Temperature 37.0 C 05/10/21 11:18 Temperature Source Oral 05/10/21 11:18 Pulse 71 05/10/21 11:18 Respiratory Rate 18 05/10/21 11:18 Respiratory Effort Non-Labored 05/10/21 11:32 Blood Pressure 147/84 H 05/10/21 11:18 Blood Pressure Position Supine 05/10/21 11:18 Pulse Oximetry 97 05/10/21 11:18 Oxygen Delivery Method Room Air 05/10/21 11:18 Oxygen Flow Rate 0 05/10/21 11:18 Lab/Test Results Lab/Test Results: Laboratory Tests Range/Units 05/10/21 11:14 Sodium Cancelled Potassium Cancelled Chloride Cancelled Carbon Dioxide Cancelled Anion Gap Cancelled BUN Cancelled Creatinine Cancelled Estimated GFR/1.73 m2 Cancelled Glucose Cancelled Calcium Cancelled Total Bilirubin Cancelled AST Cancelled ALT Cancelled Alkaline Phosphatase Cancelled Total Protein Cancelled Albumin Cancelled
--- NOTE | 2021-05-10 11:45 | DI.CT_ITS ---
Exam(s) CT HEAD WO EXAM: CT HEAD WO CLINICAL HISTORY: psychosis. TECHNIQUE: Imaging Protocol: Axial computed tomography images with coronal and sagittal reformatted images were created and reviewed COMPARISON: CT CT HEAD WO from 12/08/2020 FINDINGS: Ventricles and Extra axial spaces: Normal in size and morphology for the patient's age. Hemorrhage: None. Cerebral parenchyma: Normal. Midline shift: None. Brainstem/Cerebellum: Normal. Calvarium: Normal. Visualized Paranasal sinuses/Mastoids: Clear. Soft Tissues: Unremarkable. IMPRESSION: 1. No acute intracranial process. 2. Results of this exam have been verbally communicated with provider. RADIATION DOSE DELIVERED: 752.37mGy.cm Total DLP DATA REPOSITORY: All CT scans at this facility are submitted to the National Radiology Data Registry (NRDR) Dose Index Registry (DIR) with the [employer] (ACR). RADIATION OPTIMIZATION: All CT scans at this facility use at least one of these dose optimization te chniques: automated exposure control; mA and/or kV adjustment per patient size (includes targeted exa ms where dose is matched to clinical indication); or iterative reconstruction.
[2021-05-10 12:08] LABS: Absolute Basophil Count 0.04 10^3/uL (0.0-0.2); Absolute Eosinophil Count 0.12 10^3/uL (0.0-0.7); Absolute Lymphocyte Count 1.28 10^3/uL (1.2-3.4); Absolute Monocyte Count 0.54 10^3/uL (0.1-0.8); Absolute Neutrophil Count 1.99 10^3/uL (1.2-6.7); HCT 35.2 % (36.0-46.0); HGB 11.6 g/dL (11.2-15.7); Lymphocytes % 32.2; MCH 28.9 pg (27.0-33.0); MCV 87.8 fL (80-95); MPV 8.6 fL (8.0-11.0); Monocytes % 13.6; Neutrophils % 50.2; Nucleated RBC 0 %; Platelet Count 239 10^3/uL (130-400); RBC 4.01 10^6/uL (3.93-5.22); RDW 12.8 % (11.7-14.6); RDW-SD 41.6 fL; WBC 3.97 10^3/uL (4.4-10.8)
[2021-05-10 12:08] LABS: Source Nasal/Nares
--- NOTE | 2021-05-10 12:25 | CMSP_ITS ---
- If Service Date Differs Date of service: 05/10/21 Time of Service: 12:26 Care Management Safety Plan Status: Voluntary - Reason for Wait Reason for Wait: Assessment/Screening Chief Complaint: Nay is a 66 year old female who lives in [place] with her , Slade. Nay has a history of depression and anxiety and was recently psychiatrically hospitalized at the [facility]. Slade drives her to [facility] ED today after Nay becomes agitated at a . Slade reports that Nay has been manic all week and has been acting strangely. He states the other morning he asked her not to go to her prayer group and she became quite enraged with him. He states she jumped up on the kitchen table and screamed for several minutes before finally calming down. Nay is evaluated by Kaitlin, [facility] Crisis Screener, and deemed safe to return home. She, therefore, is discharged from [facility] and is driven home via private vehicle by her . CM will respond to ED to assess patient after patient has been medically cleared and assessed by screener. If screener deems patient meets criteria for psychiatric stabilization CM will facilitate interdepartmental huddle with [facility] screener for safety planning considerations and meet with patient to review [facility] policy and safety plan, establish individual wishes for treatment and maintain patient rights. In the interim; please note safety plan below to guide patient care while awaiting further assessment in the ED. SAFETY PLAN: 1. Will remain on suicide precautions and in paper clothes. 2. Will remain in room under direct supervision of one-on-one staff at all times provided by [employer], CHARTER BOAT CAPTAIN, NET APPLICATION SUPPORT SPECIALIST senior product integrity engineer. 3. May have paper cups, plates, finger foods as well as a cardboard spoon with which to eat meals. 4. Follow [facility] Management of the Admitted Behavioral Health Patient policy. 5. Personal care: Comfort bath system only at this time. 6. Bathroom privileges: with escort in ED. Available in room without limitation on Med/Surg. 6. No personal belongings at this time; per RN discretion. 7. No visitors at this time. 8. Phone contact limited to legal contact at this time. 9. Activities: Music tablet per RN discretion. Med/Surg: Television and remote available at RN discretion. 10. Due to VOLUNTARY status, if patient wishes to leave [facility], staff will contact [facility] Crisis Screener ([phone]) and On-Call Assurance Analyst ([phone]) as soon as possible. In the event of elopement, notify [facility] Police ([phone]). If deemed appropriate for inpatient psychiatric care, safety plan will be establ ished with patient, and care team, to adhere to patient goals, identify restrictions based on behavioral status, address nutrition, and determine allowed personal belongings, tools for hygiene and personal care. As well plan will determine level of activity including ambulation, level of supervision, visitors, and determine privileges based on level of acuity, behaviors and level of engagement by patient.
[2021-05-10 12:29] LABS: ETHANOL BLOOD < 3.0 mg/dL (<3)
[2021-05-10 12:35] LABS: Bilirubin Negative (Negative); Blood Negative (Negative); Clarity Clear (Clear); Glucose Negative (Negative); Ketones Negative (Negative); Leukocyte Esterase Negative (Negative); Nitrite Negative (Negative); Urobilinogen 0.2 EU/dL (Up TO 0.2)
[2021-05-10 12:36] VITALS: BP 143/83; PULSE 61; RESP 16; O2SAT 95
[2021-05-10 12:41] LABS: Salicylate < 2.8 mg/dL (<2.8)
[2021-05-10 12:45] LABS: Acetaminophen < 2 ug/mL (10-30)
[2021-05-10 12:52] LABS: *AMPHETAMINES SCREEN URINE Negative (Negative); *BARBITURATES SCREEN URINE Negative (Negative); *BENZODIAZEPINES SCREEN URINE Negative (Negative); Cannabinoids THC Negative (Negative); Cocaine Screen,Urine Negative (Negative); METHADONE URINE SCREEN Negative (Negative); OPIATES URINE SCREEN Negative (Negative)
[2021-05-10 12:57] LABS: Tricyclic Antidepressants Negative (Negative)
[2021-05-10 13:03] LABS: ALT 17 U/L (14-59); AST 18 U/L (15-37); Albumin 3.6 g/dL (3.4-5.0); Alkaline Phosphatase 100 U/L (46-116); Anion Gap 7.7 mmol/L (3-11); BUN 16 mg/dL (7-18); Bilirubin, Total 0.4 mg/dL (0.2-1.0); CO2 29.3 mmol/L (21.0-32.0); CREATININE 0.8 mg/dL (0.55-1.02); Chloride 102 mmol/L (98-107); Glucose 90 mg/dL (74-106); Potassium 3.8 mmol/L (3.5-5.1); Sodium 139 mmol/L (136-145); Total Protein 6.7 g/dL (6.4-8.2)
[2021-05-10 13:44] LABS: COVID-19 PCR Negative (Negative)
[2021-05-10 14:26] VITALS: BP 118/72; PULSE 58; RESP 18; TEMP 36.5; O2SAT 95
--- NOTE | 2021-05-10 16:20 | PDOC.MHCN ---
Date of service: 05/10/21 Time of Service: 16:21 Mental Health Crisis Note Presenting Issue How did you arrive at the ED and why did you come: Pt arrived via private car on 05.10.2021 after she had what is reported to have been a manic type outburst in latter day today. is concerned that she is not taking her meds and that she may have more than depression happening. Precipitating Factors Pt denied SI and HI. She is not showing symptoms of delusions at this time but does have justifying reasons for her recent elaborate actions. Disposition BEHAVIOR: Pt was sleeping heavily when this clinician first arrived. She eventually was able to be woke up and have a conversation with this clinician. She is engaged and appropriate. However, it is reported that she was very agitated upon entering the hospital requiring chemical restraints for safety. Her story's appear elaborate and eccentric. had reported for example, she has taken off twice fro 30 mins and he was waiting for her to return. Just last week she planned a alliance party without asking the person she was planning for and spent 3 hours at the grocery store and came home with 3 of everything for 's and then started inviting people and the next day or two later was told that the friend did not want a alliance party so had to uninvite the guests. Her report for staying at the store is that others were seeking her out for comfort and attention. EYE CONTACT: Eye contact was fine once she was sitting up and drinking some tea. MOOD: Pt's mood appears normal to this clinician. AFFECT: Pt's affect appeared normal. APPETITE: Pt reported that she has been eating fine. SLEEP(trouble falling/staying asleep: Pt reports that she has been sleeping fine except for last night. Pt's stated he had to put her to bed at 4am. Plan Pt to be discharged home as there is not enough at this time to justify an EE. Pt's will administer her medications and ensure she is taking them as prescribed. Pt has an appointment with her primary provider, Dr. Gale on 05.12.2021 @ 2:40p. Pt will do daily check in calls starting this evening and going to at least Sunday and then will be reassessed for this need. Pt will sign a VALENTÍN for [facility] to speak to her therapist Luz Elena Ross and continue her appointments with her the next scheduled is on 05.13.21 time unknown. was informed if the Pt refuses medications or becomes unsafe again to bring her back to the ER and she will be re-assessed again. Signature Clinician's Name/Title: Kaitlin Mendoza MS ,[facility] Emergency Services Clinician, [facility]
--- NOTE | 2021-05-10 17:07 | W.ED.FU ---
Date of service: 05/10/21 Time of Service: 17:07 Follow Up Plan: Care not signed out to me by my colleague Christine Little. Patient is pending discharge and picked up by . billing and accounting staff assistant notified me that patient is refusing to take the Seroquel which was previously ordered by my colleague. We will place Seroquel and bagging given to and informed him that patient would rather take this medication prior to bedtime.
== END 2021-05-10 18:01 | disposition home or self-care (01) ==
PROVIDERS: Emergency Provider Physician Assistant; PCP Family Medicine
DX: F33.3 Major depressive disorder, recurrent, severe with psychotic symptoms (principal); F41.8 Other specified anxiety disorders; Z78.1 Physical restraint status; Z20.822 Contact with and (suspected) exposure to COVID-19; Z03.818 Encounter for observation for suspected exposure to other biological agents ruled out; T50.916A Underdosing of multiple unspecified drugs, medicaments and biological substances, initial encounter
CPT/HCPCS: 36415; 80053; 80307; 87635; 93005; 96372; 99284; 70450; 80320; 80329; 81003; 85025; 93010; 99285; J1630; J2060

== ENCOUNTER → 2022-08-23 02:02 | Outpatient (CLI) | payer MEDICARE, SELFPAY ==
--- NOTE | 2022-08-23 07:00 | DI.US_ITS ---
Exam(s) US THYROID EXAM: US THYROID CLINICAL HISTORY: left neck/thyroid mass,r22.1. TECHNIQUE: Ultrasound thyroid performed using standard protocol. COMPARISON: No exams were available for comparison FINDINGS: ISTHMUS: 4.4 mm RIGHT LOBE: Size: 4 x 1.4 x 1 cm Echogenicity: Normal. Vascularity: Normal. Nodules: None. LEFT LOBE: Size: 4.3 x 1.4 x 1.2 cm Echogenicity: Normal. Vascularity: Normal. Nodules: There is a mixed cystic and solid 1.3 x 1.3 x 1.3 cm mass in the lower pole of the left thyr oid gland. It is isoechoic. The margins are smooth with no internal echogenic foci seen. The findi ngs are consistent with a TI rads level 2 nodule. No follow-up is recommended. OTHER FINDINGS: Note is made of a 1.3 x 1.1 x 0.8 cm sonographic benign-appearing lymph node in the l eft neck. This does appear to correspond to the palpable abnormality as identified by the patient. IMPRESSION: 1.3 x 1.1 x 0.8 cm sonographically benign-appearing left neck lymph node. This appears to correspond to the palpable abnormality as identified by the patient. DATA REPOSITORY:
== END ==
PROVIDERS: PCP Family Medicine; Visit Provider Family Medicine
DX: R22.1 Localized swelling, mass and lump, neck (principal)
CPT/HCPCS: 76536

== ENCOUNTER 2022-08-25 01:15 | Outpatient (CLI) | payer MEDICARE, SELFPAY ==
[2022-08-25 12:43] LABS: TSH (W/Ref FT4) 2.03 uIU/mL (0.36-3.74)
== END 2022-08-25 01:16 | disposition home or self-care (01) ==
LOC: LOS 01:15
PROVIDERS: PCP Family Medicine; Visit Provider Family Medicine
DX: I10 Essential (primary) hypertension (principal)
CPT/HCPCS: 36415; 84443

== ENCOUNTER → 2022-08-28 01:50 | Outpatient (CLI) | payer MEDICARE, SELFPAY ==
--- NOTE | 2022-08-28 07:00 | DI.MAMMO_ITS ---
Exam(s) MAMMO SCREENING EXAM: MAMMO SCREENING CLINICAL HISTORY: screening,Z12.39 TECHNIQUE: Mammograms were interpreted according to the usual protocol including computer analysis w [employer] CAD system, tomosynthesis and C-view imaging. COMPARISON: 2012 through 2020 FINDINGS: The breasts are composed of scattered fibroglandular densities, Breast Density category B. No suspicious masses or suspicious microcalcifications are seen. No skin thickening or abnormal axillary lymph nodes are seen. There has been no significant change from prior exams. IMPRESSION: BI-RADS Category 1, Negative mammogram Yearly screening mammography is recommended. Breast Density - Category B, scattered fibroglandular densities. A negative radiographic report should not delay biopsy if a dominant or clinically suspicious mass is present. Up to ten percent of cancers are not identified on mammography. A negative report may reinforce clinical impression. Adenosis and dense breasts may obscure an underlying neoplasm. False positive reports average 6 to 10%. Patient will receive a letter notifying them of these results.
== END ==
PROVIDERS: PCP Family Medicine; Visit Provider Family Medicine
DX: Z12.31 Encounter for screening mammogram for malignant neoplasm of breast (principal)
CPT/HCPCS: 77063; 77067

== ENCOUNTER 2023-04-02 02:43 | Outpatient (CLI) | payer MEDICARE, SELFPAY ==
--- NOTE | 2023-04-02 08:30 | DI.US_ITS ---
Exam(s) US LOWER EXTREMITY VENOUS LT EXAM: US LOWER EXTREMITY VENOUS LT CLINICAL HISTORY: left leg swelling; h/o Superfacial vv, SYMPTOM LEG SWELLING, M79.89. TECHNIQUE: Lower extremity venous ultrasound performed using grayscale, color-flow, and spectral Do ppler analysis. COMPARISON: No exams were available for comparison FINDINGS: The common femoral, femoral and popliteal veins demonstrate normal compressibility, augmentation, and color Doppler. The posterior tibial veins are patent. Partially occlusive chronic appearing thrombu s in greater saphenous vein in the mid thigh. Varicosities associated with the greater saphenous vei n also show nonocclusive thrombus from the mid thigh through the proximal medial calf. Measures appr oximately 16 cm in length.. No hematoma or Hamilton's cyst is seen. IMPRESSION: Partially occlusive focal thrombus in the greater saphenous vein and superficial branches in the mid thigh through the calf. No evidence of DVT. DATA REPOSITORY:
== END 2023-04-02 03:03 ==
LOC: DI 02:44
PROVIDERS: PCP Family Medicine; Visit Provider Family Medicine
DX: M79.89 Other specified soft tissue disorders (principal)
CPT/HCPCS: 93971

== ENCOUNTER → 2023-09-14 01:06 | Outpatient (CLI) | payer MEDICARE, SELFPAY ==
--- NOTE | 2023-09-14 08:15 | DI.DEXA_ITS ---
Exam(s) XR DEXA BONE DENSITY W/WO BC EXAM: XR DEXA BONE DENSITY W/WO BC CLINICAL HISTORY: screening for osteoporosis in postmenopausal woman,z78.0 TECHNIQUE: Routine DEXA evaluation of the lumbar spine, hip, or forearm. COMPARISON: No exams were available for comparison FINDINGS: Performed on a Hologic unit. Lateral image: No compression fracture evident. Lumbar Spine total T-score: -2.0 Hip total T-score:-2.1 Independent reading at the level of the femoral neck yields T-score of -2.7 Forearm total T-score: -2.7 IMPRESSION: Bone mineral density measures in the osteoporosis range. Fracture risk is high. Note: Any spine fracture indicates 5x risk for subsequent spine fracture and 2x risk for subsequent h ip fracture. World Health Organization criteria for BMD interpretation classify patients: Normal...... T- Score at or above -1.0 Osteopenic... T- Score between -1.0 and -2.5 Osteoporosis... T-Score at or below -2.5
--- NOTE | 2023-09-14 15:30 | DI.MAMMO_ITS ---
Exam(s) MAMMO SCREENING EXAM: MAMMO SCREENING CLINICAL HISTORY: screening Z12.39 SCREENING MAMMO FOR BREAST CANCER. TECHNIQUE: Bilateral full field digital CC and MLO mammographic images were obtained with 3D tomosyn thesis and utilizing computer aided detection (CAD). COMPARISON: Prior mammograms were reviewed. FINDINGS: There has been no significant change in the appearance and distribution of the fibroglandular tissue. There are no CAD designations. There are no new spiculated masses nor malignant appearing microcalcification groups. There is no significant architectural distortion nor skin thickening-retraction. IMPRESSION: No radiographic evidence of malignancy. BI-RADS Category 1 - Negative Breast Density - Category C - Heterogeneously dense Breast density Category C or D implies that the patient has dense breast tissue. Dense breast tissue can make it harder to find cancer on a mammogram. Dense breast tissue is also associated with an incr eased risk of breast cancer. This information about the result of the mammogram report was provided to the patient to raise their awareness. Use this report when you speak with the patient about their risks for breast cancer, which includes their family history. At that time, you may recommend additional screening tests (Ultrasoun d or MRI) as these tests may add significant information. A negative radiographic report should not delay biopsy if a dominant or clinically suspicious mass is present. Up to ten percent of cancers are not identified on mammography. A negative report may reinforce clinical impression. Adenosis and dense breasts may obscure an underlying neoplasm. False positive reports average 6 to 10%. Patient will receive a letter notifying them of these results.
== END ==
PROVIDERS: PCP Family Medicine; Visit Provider Family Medicine
DX: Z78.0 Asymptomatic menopausal state (principal); Z12.31 Encounter for screening mammogram for malignant neoplasm of breast; Z13.820 Encounter for screening for osteoporosis; M81.0 Age-related osteoporosis without current pathological fracture
CPT/HCPCS: 77063; 77067; 77080

== ENCOUNTER → 2023-09-24 02:24 | Outpatient (CLI) | payer MEDICARE, SELFPAY ==
--- NOTE | 2023-09-24 07:45 | DI.US_ITS ---
Exam(s) US THYROID EXAM: US THYROID CLINICAL HISTORY: RIGHT neck mass/family h/o thyroid cancer,r22.1. TECHNIQUE: Ultrasound thyroid performed using standard protocol. COMPARISON: US US THYROID from 08/23/2022 FINDINGS: ISTHMUS: 2 mm RIGHT LOBE: Size: 4.3 x 1.4 x 1.3 cm Echogenicity: Normal. Vascularity: Normal. Nodules: None. LEFT LOBE: Size: 4.1 x 1.0 x 1.1 cm Echogenicity: Normal. Vascularity: Normal. Nodules: Lower pole left lobe: 1.4 x 1.1 x 0.3 centimeter mixed cystic solid, isoechoic, smoothly mar ginated nodule without echogenic foci. Appearance appears unchanged from prior. TR 2. OTHER FINDINGS: Palpable abnormality in the right-sided neck corresponds to normal appearing lymph no de measuring 6 by 3 x 5 millimeters. IMPRESSION: Stable appearance of left thyroid nodule, TR2. Palpable abnormality and right-sided neck corresponds to normal appearing lymph node measuring 6 mill imeters in maximal dimension. DATA REPOSITORY:
== END ==
PROVIDERS: PCP Family Medicine; Visit Provider Family Medicine
DX: E04.1 Nontoxic single thyroid nodule (principal)
CPT/HCPCS: 76536

== ENCOUNTER 2023-09-24 18:19 | Outpatient (CLI) | payer MEDICARE, SELFPAY ==
[2023-09-24 12:49] LABS: TSH (W/Ref FT4) 1.89 uIU/mL (0.36-3.74)
== END 2023-09-24 18:20 | disposition home or self-care (01) ==
LOC: LOS 18:19
PROVIDERS: PCP Family Medicine; Visit Provider Family Medicine
DX: D34 Benign neoplasm of thyroid gland (principal); R22.1 Localized swelling, mass and lump, neck
CPT/HCPCS: 36415; 76536; 84443

== ENCOUNTER 2024-11-17 00:39 | Outpatient (CLI) | payer MEDICARE, SELFPAY ==
--- NOTE | 2024-11-17 07:45 | DI.MAMMO_ITS ---
Exam(s) MAMMO SCREENING EXAM: MAMMO SCREENING CLINICAL HISTORY: screening,z12.39 TECHNIQUE: Mammograms were interpreted according to the usual protocol including computer analysis w [employer] CAD system, tomosynthesis and C-view imaging. COMPARISON: 2014 through 2022 FINDINGS: The breasts are composed of scattered fibroglandular densities, Breast Density category B. No suspicious masses or suspicious microcalcifications are seen. No skin thickening or abnormal axillary lymph nodes are seen. There has been no significant change from prior exams. IMPRESSION: BI-RADS Category 1, Negative mammogram Yearly screening mammography is recommended. Breast Density - Category B, scattered fibroglandular densities. A negative radiographic report should not delay biopsy if a dominant or clinically suspicious mass is present. Up to ten percent of cancers are not identified on mammography. A negative report may reinforce clinical impression. Adenosis and dense breasts may obscure an underlying neoplasm. False positive reports average 6 to 10%. Patient will receive a letter notifying them of these results.
== END 2024-11-17 00:59 ==
LOC: DI 00:39
PROVIDERS: PCP Family Medicine; Visit Provider Family Medicine
DX: Z12.31 Encounter for screening mammogram for malignant neoplasm of breast (principal); R92.323 Mammographic fibroglandular density, bilateral breasts
CPT/HCPCS: 77063; 77067